=== PATIENT | male | born 1950 | race Caucasian/White ===

== ENCOUNTER 2017-06-05 06:23 | Inpatient (IN) | payer MEDICARE, MEDICAID ==
[~2017-06-05] VITALS: Ht 182.9 cm; Wt 113.4 kg
--- OUTSIDE RECORDS SUMMARY | 2017-06-05 06:33 | XMS REPORT ---
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 Medications Active Name Start Date Estimated Completion Date SIG Comments Clozaril 100 mg oral tablet take 1 tablet (100 mg) by oral route once daily Metamucil oral powder use as directed Colace 100 mg oral capsule take 1 capsule (100 mg) by oral route 2 times per day Depakote 500 mg oral tablet,delayed release (DR/EC) Zantac 150 mg oral tablet levothyroxine 137 mcg oral tablet Detrol LA 4 mg oral capsule,extended release 24hr take 1 capsule (4 mg) by oral route once daily Milk of Magnesia 400 mg/5 mL oral suspension bisacodyl 5 mg oral tablet,delayed release (DR/EC) Imodium A-D 1 mg/7.5 mL oral liquid acetaminophen 500 mg/5 mL oral liquid ibuprofen 200 mg oral tablet Maalox Maximum Strength 400-400-40 mg/5 mL oral suspension Crestor 20 mg oral tablet 10/11/2015 take 1 tablet (20 mg) by oral route once daily at bedtime Name Start Date Expiration Date SIG Comments furosemide 40 mg oral tablet 11/18/2015 11/23/2015 take 1 tablet (40 mg) by oral route once daily for 5 days Problem List Description Status Onset Chronic pain of multiple sites Active 11/18/2015 Bipolar I disorder, mild, current or most recent episode depressed, with mixed features Active 11/18/2015 Noncompliance with diet and medication regimen Active 04/27/2016 Vital Signs Date Time BP-Sys(mm[Hg] BP-Yady(mm[Hg]) HR(bpm) RR(rpm) Temp WT HT HC BMI BSA BMI Percentile O2 Sat(%) 04/26/2016 2:44:00 PM 130 mmHg 84 mmHg 99 bpm 18 rpm 98.7 F 250.5 lbs 70 in 35.94 kg/m2 2.37 m2 95 % 04/09/2016 2:20:00 PM 110 mmHg 74 mmHg 82 bpm 18 rpm 97.2 F 250 lbs 70 in 35.8709 kg/m 2.3666 m 92 % 12/07/2015 11:14:00 AM 112 mmHg 62 mmHg 69 bpm 96.6 F 219 lbs 70 in 31.42 kg/m2 2.21 m2 96 % 11/17/2015 2:25:00 PM 130 mmHg 69 mmHg 82 bpm 18 rpm 96.1 F 232 lbs 70 in 33.2882 kg/m 2.2798 m 96 % 09/21/2015 10:11:00 AM 123 mmHg 73 mmHg 95 bpm 16 rpm 96.6 F 195.25 lbs 91 % 07/18/2015 3:28:00 PM 110 mmHg 62 mmHg 96 bpm 18 rpm 97 F 196 lbs 70 in 28.1228 kg/m 2.0954 m 94 % 07/07/2015 11:20:00 AM 121 mmHg 70 mmHg 70 bpm 16 rpm 98.8 F 196 lbs 69 in 28.94 kg/m2 2.08 m2 98 % Social History Name Description Comments smoking Never Alcohol Never Uses seatbelts Current every day Exercises regularly Never Tobacco Never smoker History of Procedures Not available. Results Summary Data and Description Results 04/05/2015 2:34 PM WBC 4.3 RBC 4.69 HGB 13.20 g/dLHCT 39.80 %MCV 85.0 fLMCH 28.10 pgMCHC 33.20 g/dLRDW CV 14.0 %MPV 11.50 fLPLT 106 %NEUT 60.40 %%LYMP 28.50 %%MONO 10.40 %%EOS 0.50 %%BASO 0.20 %#NEUT 2.57 #LYMP 1.21 #MONO 0.44 # EOS 0.02 #BASO 0.01 EOS 2.0 % 05/05/2015 12:01 PM WBC 5.5 RBC 5.49 HGB 15.40 g/dLHCT 46.0 %MCV 84.0 fLMCH 28.10 pgMCHC 33.50 g/dLRDW CV 13.50 %MPV 11.40 fLPLT 105 %NEUT 56.70 %%LYMP 30.40 %%MONO 12.50 %%EOS 0.20 %%BASO 0.20 %#NEUT 3.13 #LYMP 1.68 #MONO 0.69 # EOS 0.01 #BASO 0.01 05/26/2015 7:50 AM WBC 4.4 RBC 4.93 HGB 13.80 g/dLHCT 41.10 %MCV 83.0 fLMCH 28.0 pgMCHC 33.60 g/dLRDW CV 13.90 %MPV 11.40 fLPLT 93 05/31/2015 10:20 AM WBC 5.5 RBC 5.13 HGB 14.30 g/dLHCT 43.10 %MCV 84.0 fLMCH 27.90 pgMCHC 33.20 g/dLRDW CV 13.80 %MPV 10.80 fLPLT 99 %NEUT 58.10 %%LYMP 28.10 %%MONO 12.90 %%EOS 0.70 %%BASO 0.20 %#NEUT 3.20 #LYMP 1.55 #MONO 0.71 # EOS 0.04 #BASO 0.01 EOS 1.0 % 06/06/2015 8:39 AM COLOR YELLOW APPEARANCE CLEAR SPEC GRAV 1.015 pH 8.5 PROTEIN NEGATIVE GLUCOSE NEGATIVE mg/dLKETONE TRACE BILIRUBIN NEGATIVE BLOOD NEGATIVE NITRITE NEGATIVE LEUK SCREEN NEGATIVE 06/23/2015 7:50 AM WBC 4.6 RBC 4.82 HGB 13.70 g/dLHCT 40.20 %MCV 83.0 fLMCH 28.40 pgMCHC 34.10 g/dLRDW CV 14.10 %MPV 10.50 fLPLT 107 %NEUT 51.90 %%LYMP 34.0 %%MONO 13.0 %%EOS 0.90 %%BASO 0.20 %#NEUT 2.40 #LYMP 1.57 #MONO 0.60 #EOS 0.04 #BASO 0.01 EOS 1.0 % 06/30/2015 9:41 AM WBC 4.8 RBC 4.86 HGB 13.50 g/dLHCT 41.0 %MCV 84.0 fLMCH 27.80 pgMCHC 32.90 g/dLRDW CV 14.40 %MPV 10.60 fLPLT 101 %NEUT 55.20 %%LYMP 29.20 %%MONO 14.40 %%EOS 1.0 %%BASO 0.20 %#NEUT 2.64 #LYMP 1.40 #MONO 0.69 #EOS 0.05 #BASO 0.01 EOS 2.0 %ATYP LYMPHS FEW % 07/18/2015 12:29 PM WBC 8.2 RBC 5.90 HGB 16.70 g/dLHCT 50.40 %MCV 85.0 fLMCH 28.30 pgMCHC 33.10 g/dLRDW CV 15.10 %MPV 10.90 fLPLT 110 GLUCOSE 138.0 mg/ dLSODIUM 139.0 mmol/LPOTASSIUM 4.50 mmol/LCHLORIDE 105.0 mmol/LCO2 26.0 mmol/ LBUN 22.0 mg/dLCREATININE 1.70 mg/dLSGOT/AST 13.0 IU/LSGPT/ALT 10.0 IU/LALK PHOS 110.0 IU/LTOTAL PROTEIN 7.20 g/dLALBUMIN 4.60 g/dLTOTAL BILI 0.80 mg/ dLCALCIUM 9.60 mg/dLeGFR 41 07/21/2015 7:55 AM WBC 4.9 RBC 5.07 HGB 14.10 g/dLHCT 43.0 %MCV 85.0 fLMCH 27.80 pgMCHC 32.80 g/dLRDW CV 14.30 %MPV 11.20 fLPLT 101 %NEUT 53.30 %%LYMP 24.70 %%MONO 19.60 %%EOS 1.80 %%BASO 0.60 %#NEUT 2.63 #LYMP 1.22 #MONO 0.97 # EOS 0.09 #BASO 0.03 08/23/2015 12:30 PM WBC 4.2 RBC 5.06 HGB 14.0 g/dLHCT 42.70 %MCV 84.0 fLMCH 27.70 pgMCHC 32.80 g/dLRDW CV 14.0 %MPV 11.0 fLPLT 83 %NEUT 66.10 %%LYMP 21.10 % %MONO 11.40 %%EOS 1.20 %%BASO 0.20 %#NEUT 2.78 #LYMP 0.89 #MONO 0.48 #EOS 0.05 # BASO 0.01 EOS 2.0 % 09/20/2015 3:00 PM WBC 6.2 RBC 5.45 HGB 15.30 g/dLHCT 46.10 %MCV 85.0 fLMCH 28.10 pgMCHC 33.20 g/dLRDW CV 14.40 %MPV 11.20 fLPLT 96 %NEUT 60.60 %%LYMP 22.50 %%MONO 15.40 %%EOS 1.30 %%BASO 0.20 %#NEUT 3.78 #LYMP 1.40 #MONO 0.96 # EOS 0.08 #BASO 0.01 EOS 2.0 % 09/29/2015 6:40 AM WBC 4.9 RBC 4.86 HGB 13.50 g/dLHCT 41.90 %MCV 86.0 fLMCH 27.80 pgMCHC 32.20 g/dLRDW CV 14.40 %MPV 10.20 fLPLT 92 %NEUT 53.80 %%LYMP 29.80 %%MONO 14.60 %%EOS 1.60 %%BASO 0.20 %#NEUT 2.65 #LYMP 1.47 #MONO 0.72 # EOS 0.08 #BASO 0.01 EOS 1.0 % 10/06/2015 6:25 AM WBC 6.9 RBC 5.14 HGB 14.20 g/dLHCT 44.0 %MCV 86.0 fLMCH 27.60 pgMCHC 32.30 g/dLRDW CV 14.10 %MPV 10.80 fLPLT 103 %NEUT 70.50 %%LYMP 14.50 %%MONO 14.20 %%EOS 0.70 %%BASO 0.10 %#NEUT 4.88 #LYMP 1.00 #MONO 0.98 # EOS 0.05 #BASO 0.01 10/06/2015 4:42 PM COLOR YELLOW APPEARANCE CLEAR SPEC GRAV 1.015 pH 6.5 PROTEIN TRACE GLUCOSE 100 KETONE NEGATIVE BILIRUBIN NEGATIVE BLOOD NEGATIVE NITRITE NEGATIVE LEUK SCREEN NEGATIVE CASTS/LPF FEW HYALINE /LPFCRYSTALS NEGATIVE MUCOUS THRDS 2++ BACTERIA FEW EPITH CELLS FEW SQUAMOUS /HPFTRICHOMONAS NEGATIVE YEAST NEGATIVE 11/16/2015 9:44 PM GLUCOSE 102.0 mg/dLSODIUM 143.0 mmol/LPOTASSIUM 4.70 mmol/ LCHLORIDE 107.0 mmol/LCO2 29.0 mmol/LBUN 6.0 mg/dLCREATININE 0.90 mg/dLSGOT/AST 13.0 IU/LSGPT/ALT 7.0 IU/LALK PHOS 69.0 IU/LTOTAL PROTEIN 5.10 g/dLALBUMIN 3.10 g/dLTOTAL BILI 0.30 mg/dLCALCIUM 8.10 mg/dLeGFR >60 mL/min/1.73m 11/28/2015 4:03 PM GLUCOSE 78.0 mg/dLSODIUM 140.0 mmol/LPOTASSIUM 5.0 mmol/ LCHLORIDE 106.0 mmol/LCO2 24.0 mmol/LBUN 12.0 mg/dLCREATININE 1.0 mg/dLSGOT/AST 24.0 IU/LSGPT/ALT 13.0 IU/LALK PHOS 63.0 IU/LTOTAL PROTEIN 6.70 g/dLALBUMIN 3.90 g/dLTOTAL BILI 0.40 mg/dLCALCIUM 8.60 mg/dLeGFR >60 mL/min/1.73m 12/29/2015 6:20 AM GLUCOSE 88.0 mg/dLSODIUM 143.0 mmol/LPOTASSIUM 3.90 mmol/ LCHLORIDE 107.0 mmol/LCO2 26.0 mmol/LBUN 17.0 mg/dLCREATININE 0.90 mg/dLSGOT/ AST 24.0 IU/LSGPT/ALT 21.0 IU/LALK PHOS 54.0 IU/LTOTAL PROTEIN 5.70 g/dLALBUMIN 3.70 g/dLTOTAL BILI 0.30 mg/dLCALCIUM 8.70 mg/dLeGFR >60 mL/min/1.73m 01/19/2016 6:55 AM GLUCOSE 83.0 mg/dLSODIUM 142.0 mmol/LPOTASSIUM 4.20 mmol/ LCHLORIDE 105.0 mmol/LCO2 25.0 mmol/LBUN 18.0 mg/dLCREATININE 1.0 mg/dLSGOT/AST 33.0 IU/LSGPT/ALT 33.0 IU/LALK PHOS 65.0 IU/LTOTAL PROTEIN 6.80 g/dLALBUMIN 4.40 g/dLTOTAL BILI 0.50 mg/dLCALCIUM 9.20 mg/dLeGFR >60 mL/min/1.73m 02/11/2016 6:39 PM COLOR YELLOW APPEARANCE CLEAR SPEC GRAV 1.025 pH 5.5 PROTEIN NEGATIVE GLUCOSE NEGATIVE mg/dLKETONE NEGATIVE BILIRUBIN NEGATIVE BLOOD NEGATIVE NITRITE NEGATIVE LEUK SCREEN NEGATIVE 02/23/2016 6:35 AM TSH 3.320 uIU/mLHemoglobin A1c 6.10 % 02/29/2016 3:53 PM WBC 5.6 RBC 5.22 HGB 14.80 g/dLHCT 44.60 %MCV 85.0 fLMCH 28.40 pgMCHC 33.20 g/dLRDW CV 15.10 %MPV 9.80 fLPLT 112 GLUCOSE 154.0 mg/ dLSODIUM 141.0 mmol/LPOTASSIUM 4.40 mmol/LCHLORIDE 102.0 mmol/LCO2 26.0 mmol/ LBUN 20.0 mg/dLCREATININE 1.40 mg/dLSGOT/AST 35.0 IU/LSGPT/ALT 39.0 IU/LALK PHOS 57.0 IU/LTOTAL PROTEIN 6.70 g/dLALBUMIN 4.40 g/dLTOTAL BILI 0.40 mg/ dLCALCIUM 9.30 mg/dLeGFR 51 BNP 28.0 pg/mLVALPROIC ACID 64.0 ug/mL 03/14/2016 2:10 PM GLUCOSE 159.0 mg/dLSODIUM 139.0 mmol/LPOTASSIUM 4.30 mmol/ LCHLORIDE 100.0 mmol/LCO2 26.0 mmol/LBUN 25.0 mg/dLCREATININE 1.30 mg/dLSGOT/ AST 33.0 IU/LSGPT/ALT 39.0 IU/LALK PHOS 55.0 IU/LTOTAL PROTEIN 6.60 g/dLALBUMIN 4.30 g/dLTOTAL BILI 0.60 mg/dLCALCIUM 9.20 mg/dLeGFR 55 History Of Immunizations Not available. History of Past Illness Name Date of Onset Comments bipolar Constipation Hyperlipidemia Hypothyroidism Chronic pain of multiple sites 11/18/2015 Bipolar I disorder, mild, current or most recent episode depressed, with mixed features 11/18/2015 Peripheral edema 12/14/2015 Noncompliance with diet and medication regimen 04/27/2016 Hypothyroidism, Acquired Jul 07 2015 11:20AM Constipation Jul 07 2015 11:20AM Bipolar affective disorder Jul 07 2015 11:20AM Mild Hypertonicity of bladder Jul 07 2015 11:20AM Moderate Acute Gastroenteritis, Viral Improving Jul 18 2015 3:28PM Mild Acute Diarrhea Improving Jul 18 2015 3:28PM Mild Acute Nausea Improving Jul 18 2015 3:28PM Non-intractable vomiting with nausea, vomiting of unspecified type Jul 18 2015 3:28PM Mild Acute Dizziness Sep 21 2015 10:12AM Labyrinthitis Sep 21 2015 10:12AM Moderate Acute Peripheral edema Nov 17 2015 2:26PM Moderate Acute Abnormal weight gain Nov 17 2015 2:26PM Chronic pain of multiple sites Nov 17 2015 2:26PM Bipolar I disorder, mild, current or most recent episode depressed, with mixed features Nov 17 2015 2:26PM Mild Chronic Peripheral edema Dec 07 2015 11:15AM Bipolar I disorder, mild, current or most recent episode depressed, with mixed features Dec 07 2015 11:15AM Mild Chronic Polyarthralgia Dec 07 2015 11:15AM Peripheral edema Apr 26 2016 2:45PM Noncompliance with diet and medication regimen Apr 26 2016 2:45PM Bipolar I disorder, mild, current or most recent episode depressed, with mixed features Apr 26 2016 2:45PM Peripheral edema Apr 09 2016 2:20PM Bipolar I disorder, mild, current or most recent episode depressed, with mixed features Apr 09 2016 2:20PM Chronic pain of multiple sites Apr 09 2016 2:20PM Noncompliance with diet and medication regimen Apr 09 2016 2:20PM Payers Insurance Name Company Name Plan Name Plan Number Policy Number Policy Group Number Start Date Medicare Part A Medicare RHC [id number] N/A [facility] Comm [id number] N/A Medicare Part A Medicare - Lab/Xray [id number] N/A Medicare Part A Medicare Part A [id number] N/A [facility] Comm Plan of [id number] N/A History of Encounters Visit Date Visit Type Provider 04/26/2016 Office visit RAKEL NAVARRO 04/09/2016 Office visit RAKEL NAVARRO 12/07/2015 Office visit RAKEL NAVARRO 11/17/2015 Office visit RAKEL NAVARRO 09/21/2015 Office visit RAKEL NAVARRO 07/18/2015 Office visit RAKEL NAVARRO 07/07/2015 Office visit RAKEL NAVARRO
--- OUTSIDE RECORDS SUMMARY | 2017-06-05 06:34 | XMS REPORT ---
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 Encounters No authorized problems tracked for encounter diagnoses are available for this visit. Medications No medications recorded for this patient visit Allergies, adverse reactions, alerts Allergen Category Ingredient Status Reaction Severity Onset Penicillins Drug Allergy Penicillins Confirmed or Verified Immunizations No immunizations recorded for this patient visit Relevant diagnostic tests and/or laboratory data RESULTS Chemistry [id number]:05:00 Result Normal Range Units Triglycerides H 200 35-160 mg/dl Cholesterol L 90 120-200 mg/dl HDL Cholesterol L 27 32-72 mg/dl VLDL Cholesterol 40 5-40 mg/dl LDL Cholesterol 43 30-100 mg/dl Hematology [id number]:00 Result Normal Range Units WBC 6.1 4.8-10.8 103/uL RBC 5.4 4.7-6.1 106/uL HGB 14.9 13.0-18.0 g/dl HCT 43.3 41.9-52.0 % MCV L 79.6 80-94 FL MCH 27.4 27-31 pg MCHC 34.4 33-37 g/dl RDW 14.8 11.5-15.5 % PLT 134 130-400 103/uL MPV H 10.9 7.3-10.4 FL Neutro % 53.8 40-70 % Lymph % 33.1 20-40 % Harmon % H 12.4 0-10.0 % Eos % 0.5 0-7.0 % Baso % 0.2 0-2 % Neutro # 3.3 1.5-7.5 103/uL Lymph # 2.0 0.9-4.0 103/uL Harmon # 0.8 0-0.8 103/uL Eos # 0.0 0-0.6 103/uL Baso # 0.0 0-0.1 103/uL Special Chemistry [id number]:05:00 Result Normal Range Units Hemoglobin A1C 6.0 4.5-6.2 % Reference Lab ([facility]) [id number]:05:00 Result Normal Range Units PSA 2.79 0-4.0 ng/ml Patient samples may contain heterophilic antibodies that could react in immunoassays to give falsely elevated or depressed results. This Dimension assay has been designed to minimize interference from heterophilic antibodies. Nevertheless, complete elimination of this interference from all patient specimens cannot be guaranteed. A test result that is inconsistent with the clinical picture and patient history should be interpreted with caution. Radiology Results :05:00 Result Normal Range Units MPV H 10.9 7.3-10.4 FL History of procedures Procedure Code Code Type Description Date Performed Performing Physician 51831 CPT[facility]4 [facility] [address] CPT-4 GLYCOSYLATED HEMOGLOBIN TEST 01-11-2015 [facility] [address]85 CPT-4 COMPLETE CBC W/AUTO DIFF WBC 01-11-2015 [facility] G0103 CPT-4 PSA SCREENING 01-11-2015 [facility] Functional status No functional or cognitive status observations are available for this visit. Vital signs No authorized vital signs are available for this visit. Social history No Social History or smoking status observations were recorded for this visit. ( Unknown if ever smoked.) Treatment Plan No treatment plan text is available for this visit. Hospital discharge instructions No discharge instruction text is available for this visit.
--- OUTSIDE RECORDS SUMMARY | 2017-06-05 06:34 | XMS REPORT ---
Author Author [facility] Digital Theatre [facility] Medical Staff Organization [facility] Address [address] [id number] Phone [phone] Care Team Providers Care Yam Curer Name Role Phone OLIVER CAGE MD PP [phone] Summary purpose TRANSITION OF CARE AUTO GENERATION Chief Complaint and Reason for Visit Admit Diagnosis 1 FEVER C DIFF ELEVATED LACTIC ACID Problem list No authorized problems tracked for continuity of care are available for this visit. Encounters The following conditions tracked for encounter diagnoses were recorded for this visit: Finding or Diagnosis Status Certainty Chronicity Onset *MALAISE AND FATIGUE Active *FALLS Active *FEVER Active *DIARRHEA; c-diff positive Active Medications Discharge Medications Status Medication Directions Current acetaminophen 500 mg Tab 2 TABLET oral PRN Every 8 Hours for pain/ fever Current bisacodyl 5 mg Tab 1-3 TABLET oral As Needed for constipation Current Clozaril 100 mg Tab 1 TABLET oral 1 Daily for mental illness Current Clozaril 100 mg Tab 2 TABLET oral 1 Daily for mental illness this dose is taken at 1700 QD Current Crestor 10 mg tablet 1 TABLET oral At Bed Time Current Crestor 20 mg Tab 1 TABLET oral At Bed Time for cholesterol Current Depakote 500 mg Tab 1 TABLET oral 2 Times Daily for bipolar disorder takes at 0800 and 1700 Current Detrol LA 4 mg 24 hr Cap 1 CAPSULE oral 1 Daily for bladder takes at 1700 Current docusate sodium 100 mg Cap 1 CAPSULE oral 2 Times Daily for bowels takes at 0800 and 1700 Current Jessica-Mox Antacid-Antigas 200 mg-200 mg-20 mg/5 mL oral suspension 30 milliliter(s) oral PRN Every 4 Hours Current Imodium oral 1-2 TABLET oral PRN Every 6 Hours Current levothyroxine 137 mcg tablet 1 TABLET oral 1 Daily for thyroid takes at 1700 Current Metamucil oral 1 other oral 1 Daily 1 TBSP in 8oz of liquid Current Milk of Magnesia Oral 30 milliliter(s) oral As Needed for constipation make take up to 3 times a week Current Zantac 150 mg Tab 1 TABLET oral Every Morning for GERD takes at 0700 QD Stopped Augmentin 875 mg-125 mg tablet 1 TABLET oral 2 Times Daily x20 doses started on the Jun Stopped Siltussin-DM oral 10 milliliter(s) oral PRN Every 4 Hours Allergies, adverse reactions, alerts Allergen Category Ingredient Status Reaction Severity Onset Penicillins Drug Allergy Penicillins Confirmed or Verified Immunizations No immunizations recorded for this patient visit Relevant diagnostic tests and/or laboratory data RESULTS Routine Urinalysis [id number]:30:00 Result Normal Range Units Color YELLOW Clarity Cloudy Specific [place] 1.024 pH 6.0 4.5-8.0 Glucose NEGATIVE Bilirubin NEGATIVE Ketones TRACE Protein 1+ Urobilinogen 0.2 0-0.2 E.U./dL Nitrites NEGATIVE Blood NEGATIVE Leukocytes NEGATIVE WBCs 5-10 RBCs 0-5 Squamous Epithelial No Squamous Epithelial Cells seen. Bacteria 1+ Mucous 2+ Blood Cultures [id number]:03:00 Blood Culture Plate Date and Time 07/16/2014 18:07 SourceBLOOD CULTURE REPORT NoGrowth at 1 day. Unless otherwise notified. Final report in 5 Days. Release Date/Time: 07/18/2014 12:07 CULTURE REPORT No growth in 5 days. Release Date/Time: 07/22/2014 08:45 [id number]:37:00 Blood Culture Plate Date and Time 07/16/2014 17:48 SourceBLOOD CULTURE REPORT NoGrowth at 1 day. Unless otherwise notified. Final report in 5 Days. Release Date/Time: 07/18/2014 12:07 CULTURE REPORT No growth in 5 days. Release Date/Time: 07/22/2014 08:43 Chemistry [id number]:50:00 Result Normal Range Units Sodium 144 134-145 mEq/l Potassium 3.6 3.5-5.1 mEq/l Chloride H 108 98-107 mEq/l CO2 27.5 22-28 mEq/l Glucose 93 70-105 mg/dl BUN L 5 7-18 mg/dl Creatinine 0.92 0.6-1.3 mg/dl Calcium 8.6 8.4-10.2 mg/dl Magnesium 1.9 1.7-2.8 mg/dl Osmolality 283.8 280-300 mOsm/L Anion GAP 8.5 8-16 BUN/Creatinine Ratio L 5.4 10-20 Estimated GFR 83 >=60 mL/min/1.7 :55:00 Result Normal Range Units Sodium 144 134-145 mEq/l Potassium 3.6 3.5-5.1 mEq/l Chloride H 108 98-107 mEq/l CO2 27.0 22-28 mEq/l Glucose 94 70-105 mg/dl BUN L 5 7-18 mg/dl Creatinine 0.88 0.6-1.3 mg/dl Calcium 8.5 8.4-10.2 mg/dl Osmolality 283.8 280-300 mOsm/L Anion GAP 9.0 8-16 BUN/Creatinine Ratio L 5.7 10-20 Estimated GFR 87 >=60 mL/min/1.7 :45:00 Result Normal Range Units Sodium 144 134-145 mEq/l Potassium 3.6 3.5-5.1 mEq/l Chloride H 109 98-107 mEq/l CO2 27.5 22-28 mEq/l Glucose 88 70-105 mg/dl BUN L 5 7-18 mg/dl Creatinine 0.87 0.6-1.3 mg/dl Calcium 8.4 8.4-10.2 mg/dl TP - Total Protein L 5.7 6.0-8.3 g/dl Albumin L 2.8 3.5-5 g/dl Bilirubin - Total 0.4 0.1-1.0 mg/dl AST 24 10-42 IU/L ALT 15 12-65 IU/L ALP 70 39-107 IU/L Osmolality 283.5 280-300 mOsm/L Albumin/Globulin Ratio 1.0 0-8 Anion GAP L 7.5 8-16 BUN/Creatinine Ratio L 5.7 10-20 Estimated GFR 88 >=60 mL/min/1.7 :45:00 Result Normal Range Units Sodium 143 134-145 mEq/l Potassium 3.5 3.5-5.1 mEq/l Chloride H 108 98-107 mEq/l CO2 25.0 22-28 mEq/l Glucose 104 70-105 mg/dl BUN 8 7-18 mg/dl Creatinine 0.96 0.6-1.3 mg/dl Calcium L 8.2 8.4-10.2 mg/dl TP - Total Protein L 5.8 6.0-8.3 g/dl Albumin L 3.0 3.5-5 g/dl Bilirubin - Total 0.5 0.1-1.0 mg/dl AST 20 10-42 IU/L ALT 13 12-65 IU/L ALP 79 39-107 IU/L Osmolality 283.6 280-300 mOsm/L Albumin/Globulin Ratio 1.1 0-8 Anion GAP 10.0 8-16 BUN/Creatinine Ratio L 8.3 10-20 Estimated GFR 79 >=60 mL/min/1.7 [id number]:37:00 Result Normal Range Units Sodium 141 134-145 mEq/l Potassium 3.8 3.5-5.1 mEq/l Chloride 103 98-107 mEq/l CO2 24.8 22-28 mEq/l Glucose H 166 70-105 mg/dl BUN 8 7-18 mg/dl Creatinine 1.30 0.6-1.3 mg/dl Calcium 8.8 8.4-10.2 mg/dl TP - Total Protein 6.9 6.0-8.3 g/dl Albumin 3.6 3.5-5 g/dl Bilirubin - Total 0.3 0.1-1.0 mg/dl AST 13 10-42 IU/L ALT 15 12-65 IU/L ALP 95 39-107 IU/L Osmolality 283.3 280-300 mOsm/L Albumin/Globulin Ratio 1.1 0-8 Anion GAP 13.2 8-16 BUN/Creatinine Ratio L 6.2 10-20 Estimated GFR L 55 >=60 mL/min/1.7 Lactic Acid H 2.6 0.4-2.0 mmol/L Hematology [id number]:50:00 Result Normal Range Units WBC L 4.7 4.8-10.8 103/uL RBC L 4.6 4.7-6.1 106/uL HGB L 12.5 13.0-18.0 g/dl HCT L 37.1 41.9-52.0 % MCV 80.1 80-94 FL MCH 27.0 27-31 pg MCHC 33.7 33-37 g/dl RDW 14.9 11.5-15.5 % PLT 150 130-400 103/uL MPV 10.3 7.3-10.4 FL Segs 55.0 40-70 % Lymphs 30.0 20-40 % [place] 9.0 0-10 % Eos 3.0 0-7 % Atypical Lymphs 3.0 0-5 % :55:00 Result Normal Range Units WBC L 4.7 4.8-10.8 103/uL RBC 4.7 4.7-6.1 106/uL HGB L 12.7 13.0-18.0 g/dl HCT L 37.8 41.9-52.0 % MCV 80.4 80-94 FL MCH 27.0 27-31 pg MCHC 33.6 33-37 g/dl RDW 15.0 11.5-15.5 % PLT 141 130-400 103/uL MPV 10.3 7.3-10.4 FL Neutro % 57.7 40-70 % Lymph % 25.6 20-40 % [place] % H 13.1 0-10.0 % Eos % 3.2 0-7.0 % Baso % 0.4 0-2 % Neutro # 2.7 1.5-7.5 103/uL Lymph # 1.2 0.9-4.0 103/uL [place] # 0.6 0-0.8 103/uL Eos # 0.2 0-0.6 103/uL Baso # 0.0 0-0.1 103/uL [id number]:45:00 Result Normal Range Units WBC 5.2 4.8-10.8 103/uL RBC L 4.4 4.7-6.1 106/uL HGB L 12.2 13.0-18.0 g/dl HCT L 37.5 41.9-52.0 % MCV 85.8 80-94 FL MCH 27.9 27-31 pg MCHC L 32.5 33-37 g/dl RDW 15.2 11.5-15.5 % PLT L 117 130-400 103/uL MPV H 11.0 7.3-10.4 FL Neutro % 57.0 40-70 % Lymph % 25.0 20-40 % [place] % H 14.3 0-10.0 % Eos % 3.5 0-7.0 % Baso % 0.2 0-2 % Neutro # 3.0 1.5-7.5 103/uL Lymph # 1.3 0.9-4.0 103/uL [place] # 0.7 0-0.8 103/uL Eos # 0.2 0-0.6 103/uL Baso # 0.0 0-0.1 103/uL [id number]:45:00 Result Normal Range Units WBC 8.0 4.8-10.8 103/uL RBC 4.7 4.7-6.1 106/uL HGB 13.0 13.0-18.0 g/dl HCT L 38.3 41.9-52.0 % MCV 80.8 80-94 FL MCH 27.4 27-31 pg MCHC 33.9 33-37 g/dl RDW H 15.7 11.5-15.5 % PLT L 128 130-400 103/uL MPV H 11.2 7.3-10.4 FL Neutro % H 70.3 40-70 % Lymph % L 14.9 20-40 % [place] % H 14.3 0-10.0 % Eos % 0.4 0-7.0 % Baso % 0.1 0-2 % Neutro # 5.6 1.5-7.5 103/uL Lymph # 1.2 0.9-4.0 103/uL [place] # H 1.1 0-0.8 103/uL Eos # 0.0 0-0.6 103/uL Baso # 0.0 0-0.1 103/uL [id number]:37:00 Result Normal Range Units WBC 9.5 4.8-10.8 103/uL RBC 5.4 4.7-6.1 106/uL HGB 14.6 13.0-18.0 g/dl HCT 43.9 41.9-52.0 % MCV 81.3 80-94 FL MCH 27.0 27-31 pg MCHC 33.3 33-37 g/dl RDW 15.4 11.5-15.5 % PLT 144 130-400 103/uL MPV H 10.6 7.3-10.4 FL Segs H 75.0 40-70 % Bands H 14.0 0-5 % Lymphs L 9.0 20-40 % [place] 2.0 0-10 % Microbiology [id number]:00:00 Result Normal Range Units MRSA Screen See Comments Plate Date and Time 07/16/2014 23:39 SourceNOSE CULTURE REPORT Negative - No MRSA Colonization Day 1 Release Date/Time: 07/17/2014 07:34 CULTURE REPORT Negative - No MRSA Colonization Day 2 Release Date/Time: 07/18/2014 07:31 Body Fluid [id number]:30:00 Result Normal Range Units pH 6.0 4.5-8.0 Radiology Results [id number]:50:00 Result Normal Range Units MPV 10.3 7.3-10.4 FL [id number]:54:00 Abdomen 1 View Port PACs Image DATE OF EXAM: 2013 RAD [id number]-ABDOMEN 1 VIEW PORT : RADIOLOGY REPORT DATE OF SERVICE:07/16/2014 HISTORY:Patient fell and has dizziness, diarrhea, and arm edema. ABDOMEN PORTABLE 1 VIEW STUDY 1754 HOURS Bowel gas pattern is normal. No abnormal calcifications are seen. Bony structures are intact. IMPRESSION: Negative study of the abdomen. DO MARYANN Mcmahon/susan 07/18/2014 09:47:00 / 07/18/2014 11:52:42 cc:Dr. Oliver Cage This document has been electronically Signed by: On: DATE OF EXAM: 2013 RAD 0029-ABDOMEN 1 VIEW PORT : RADIOLOGY REPORT DATE OF SERVICE:07/16/2014 HISTORY:Patient fell and has dizziness, diarrhea, and arm edema. ABDOMEN PORTABLE 1 VIEW STUDY 1754 HOURS Bowel gas pattern is normal. No abnormal calcifications are seen. Bony structures are intact. IMPRESSION: Negative study of the abdomen. Jamari Valdez DO MW/susan 07/18/2014 09:47:00 / 07/18/2014 11:52:42 cc:Dr. Oliver Cage This document has been electronically Signed by: JAMARI VALDEZ DO On: Jul 19 20148:54A FEVER C DIFF ELEVATED LACTIC A Result Amended on 2014-07-19 at 08:54:13. Previous status was NH. FEVER C DIFF ELEVATED LACTIC A Chest XRay - Port - 1 View PACs Image DATE OF EXAM: 2013 RAD 0292-CHEST 1 VIEW PORT : RADIOLOGY REPORT DATE OF SERVICE:07/16/2014 HISTORY:The patient fell and has dizziness, diarrhea, and arm edema. PORTABLE 1 VIEW CHEST 1754 HOURS Heart and mediastinum are normal. The lungs are clear. No effusion is seen. IMPRESSION: No acute process in the chest. There is marked deformity and degenerative change at the right shoulder. Jamari Valdez DO MW/gc 07/18/2014 09:47:00 / 07/18/2014 11:51:15 cc:Dr. Oliver Cage This document has been electronically Signed by: On: DATE OF EXAM: 2013 RAD 0292-CHEST 1 VIEW PORT : RADIOLOGY REPORT DATE OF SERVICE:07/16/2014 HISTORY:The patient fell and has dizziness, diarrhea, and arm edema. PORTABLE 1 VIEW CHEST 1754 HOURS Heart and mediastinum are normal. The lungs are clear. No effusion is seen. IMPRESSION: No acute process in the chest. There is marked deformity and degenerative change at the right shoulder. Jamari Valdez DO MW/gc 07/18/2014 09:47:00 / 07/18/2014 11:51:15 cc:Dr. Oliver Cage This document has been electronically Signed by: JAMARI VALDEZ DO On: Jul 19 20148:54A FEVER C DIFF ELEVATED LACTIC A Result Amended on 2014-07-19 at 08:54:12. Previous status was NH. FEVER C DIFF ELEVATED LACTIC A [id number]:55:00 Result Normal Range Units MPV 10.3 7.3-10.4 FL [id number]:45:00 Result Normal Range Units MPV H 11.0 7.3-10.4 FL [id number]:45:00 Result Normal Range Units MPV H 11.2 7.3-10.4 FL [id number]:37:00 Result Normal Range Units MPV H 10.6 7.3-10.4 FL History of procedures No procedures recorded for this patient visit. Functional status Functional Status Finding Observation Time Hearing Prob Loc bilateral Comment: MI'KMAQ :45 Vision Problems no :45 Ambulation Asst Dev none :45 Range of Motion full :35 Muscle Strength RUE 5 ROM full resist :35 Muscle Strength RLE 5 ROM full resist :35 Muscle Strength LUE 5 ROM full resist :35 Muscle Strength LLE 5 ROM full resist :35 Transfers assist x 1 :35 Ambulation in room :35 Balance unsteady :35 Bathing Assistance moderate :45 Eating Assistance none :03 Dressing Assistance none :45 Toileting Assistance moderate :45 Transfer Assistance moderate :45 Decline Slf Care/Mob no :45 Phys Cond Stable yes :45 Cognitive Status Finding Observation Time Oriented To Date [address] Yes :[address] 5 Yes :45 Name 3 Objects 3 Yes :45 Name Object in Rm 2 Yes :45 Recall 3 Objects 3 Yes :45 Repeats a Phrase 1 Yes :45 Follows Verbal Direc 3 Yes :45 Follows Written Dire 1 Yes :45 Write a Sentance 1 Yes :45 Draw an Object 1 Yes :45 Mini Mental Total 25 points :45 Less than 20 Phys not applicable :45 Learning Ability comprehend deficit :08 Neurological no :08 Psychological yes :08 Physical yes :08 Hearing yes :08 Nuclear Scientist Needed no :08 Sign Language no :08 Emotional no :08 Vision yes :08 Laguage no :08 Financial no :08 Vital signs Type Value Date Respiration Rate 18breaths per minute :26 Pulse 84beats per minute : Oxygen Saturation 93% :26 BP Systolic 137mmHg :26 BP Diastolic 77mmHg :26 Temperature 98.3F :26 Height 69.5inches :50 Weight 204.4LB [id number]:50 Social history Type Value Smoking Status NEVER SMOKER Treatment Plan No treatment plan text is available for this visit. Hospital discharge instructions Dismissal Condition fair Disposition on DC admitted Valuables yes Valuable Type other (specify) Comment: clothing
--- OUTSIDE RECORDS SUMMARY | 2017-06-05 06:35 | XMS REPORT ---
Author RAKEL Kumar [facility] Address [address] [facility] [address] [place], [place] [id number] Care Team Providers Care Mechanical Applications Engineer Name Role Phone RAKEL YEBOAH PCP Unavailable Allergies and Adverse Reactions Name Reaction Notes PENICILLINS Plan of Treatment Planned Activity Comments Planned Date Planned Time Plan/Goal Injection,Subcutaneous/Intramuscul, RHC Medicare 09/14/2016 12:00 AM Medications Active Name Start Date Estimated Completion [...] by oral route once daily at bedtime Zithromax Z-Nicola 250 mg oral tablet 09/11/2016 09/16/2016 take 2 tablets (500 mg ) by oral route once daily for 1 day then 1 tablet (250 mg) by oral route once daily for 4 days Name Start Date Expiration Date SIG Comments furosemide 40 mg oral tablet 11/18/2015 11/23/2015 take 1 tablet (40 mg) by oral route once daily for 5 days Problem List Description Status Onset Chronic pain of multiple sites Active 11/18/2015 Bipolar I disorder, mild, current or most recent episode depressed, with mixed features Active 11/18/2015 Noncompliance with diet and medication regimen Active 04/27/2016 Advanced dementia Active 07/31/2016 Generalized edema Active 07/31/2016 Drug-induced Parkinsonism Active 07/31/2016 Depression, major, recurrent, severe with psychosis Active 07/31/2016 Vital Signs Date Time BP-Sys(mm[Hg] BP-Yady(mm[Hg]) HR(bpm) RR(rpm) Temp WT HT HC BMI BSA BMI Percentile O2 Sat(%) 09/14/2016 11:01:00 AM 145 mmHg 64 mmHg 70 bpm 16 rpm 98.2 F 258 lbs 90 % 09/11/2016 2:53:00 PM 138 mmHg 65 mmHg 73 bpm 18 rpm 98.9 F 250 lbs 70 in 35.8709 kg/m 2.3666 m 91 % 07/30/2016 2:27:00 PM 130 mmHg 80 mmHg 83 bpm 18 rpm 97.4 F 70 in 97 % 05/10/2016 11:05:00 AM 122 mmHg 65 mmHg 108 bpm 16 rpm 98.4 F 249 lbs 70 in 35.7274 kg/m 2.3618 m 96 % 04/26/2016 2:44:00 PM 130 mmHg 84 mmHg [...] %MCV 85.0 fLMCH 28.10 pgMCHC 33.20 g/dLRDW SD 43 RDW CV 14.0 %MPV 11.50 fLPLT 106 NRBC# 0.00 NRBC% 0.0 %NEUT 60.40 %%LYMP 28.50 %%MONO 10.40 %%EOS 0.50 %%BASO 0.20 %#NEUT 2.57 #LYMP 1.21 #MONO 0.44 #EOS 0.02 #BASO 0.01 SEGS 64 BANDS 11 LYMPHS 16 MONOS 7 EOS 2.0 % 05/05/2015 12:01 PM WBC 5.5 RBC 5.49 HGB 15.40 g/dLHCT 46.0 %MCV 84.0 fLMCH 28.10 pgMCHC 33.50 g/dLRDW SD 41 RDW CV 13.50 %MPV 11.40 fLPLT 105 NRBC# 0.00 NRBC% 0.0 %NEUT 56.70 %%LYMP 30.40 %%MONO 12.50 %%EOS 0.20 %%BASO 0.20 %#NEUT 3.13 #LYMP 1.68 #MONO 0.69 #EOS 0.01 #BASO 0.01 SEGS 51 BANDS 10 LYMPHS 34 MONOS 5 05/26/2015 7:50 AM WBC 4.4 RBC 4.93 HGB 13.80 g/dLHCT 41.10 %MCV 83.0 fLMCH 28.0 pgMCHC 33.60 g/dLRDW SD 42 RDW CV 13.90 %MPV 11.40 fLPLT 93 NRBC# 0.00 NRBC % 0.0 05/31/2015 10:20 AM WBC 5.5 RBC 5.13 HGB 14.30 g/dLHCT 43.10 %MCV 84.0 fLMCH 27.90 pgMCHC 33.20 g/dLRDW SD 42 RDW CV 13.80 %MPV 10.80 fLPLT 99 NRBC# 0.00 NRBC% 0.0 %NEUT 58.10 %%LYMP 28.10 %%MONO 12.90 %%EOS 0.70 %%BASO 0.20 %#NEUT 3.20 #LYMP 1.55 #MONO 0.71 #EOS 0.04 #BASO 0.01 SEGS 53 BANDS 6 LYMPHS 35 MONOS 5 EOS 1.0 % 06/06/2015 8:39 AM COLOR YELLOW APPEARANCE CLEAR SPEC GRAV 1.015 pH 8.5 PROTEIN NEGATIVE GLUCOSE NEGATIVE mg/dLKETONE TRACE BILIRUBIN NEGATIVE BLOOD NEGATIVE NITRITE NEGATIVE LEUK SCREEN NEGATIVE MICRO INDICATED? NOT INDICATED 06/23/2015 7:50 AM WBC 4.6 RBC 4.82 HGB 13.70 g/dLHCT 40.20 %MCV 83.0 fLMCH 28.40 pgMCHC 34.10 g/dLRDW SD 43 RDW CV 14.10 %MPV 10.50 fLPLT 107 NRBC# 0.00 NRBC% 0.0 %NEUT 51.90 %%LYMP 34.0 %%MONO 13.0 %%EOS 0.90 %%BASO 0.20 %#NEUT 2.40 #LYMP 1.57 #MONO 0.60 #EOS 0.04 #BASO 0.01 SEGS 44 BANDS 10 LYMPHS 35 MONOS 10 EOS 1.0 % 06/30/2015 9:41 AM WBC 4.8 RBC 4.86 HGB 13.50 g/dLHCT 41.0 %MCV 84.0 fLMCH 27.80 pgMCHC 32.90 g/dLRDW SD 44 RDW CV 14.40 %MPV 10.60 fLPLT 101 NRBC# 0.00 NRBC% 0.0 %NEUT 55.20 %%LYMP 29.20 %%MONO 14.40 %%EOS 1.0 %%BASO 0.20 %#NEUT 2.64 #LYMP 1.40 #MONO 0.69 #EOS 0.05 #BASO 0.01 SEGS 48 BANDS 9 LYMPHS 31 MONOS 10 EOS 2.0 %ATYP LYMPHS FEW % 07/18/2015 12:29 PM WBC 8.2 RBC 5.90 HGB 16.70 g/dLHCT 50.40 %MCV 85.0 fLMCH 28.30 pgMCHC 33.10 g/dLRDW SD 47 RDW CV 15.10 %MPV 10.90 fLPLT 110 NRBC# 0.00 NRBC% 0.0 GLUCOSE 138.0 mg/dLSODIUM 139.0 mmol/LPOTASSIUM 4.50 mmol/LCHLORIDE 105.0 mmol/LCO2 26.0 mmol/LBUN 22.0 mg/dLCREATININE 1.70 mg/dLSGOT/AST 13.0 IU/ LSGPT/ALT 10.0 IU/LALK PHOS 110.0 IU/LTOTAL PROTEIN 7.20 g/dLALBUMIN 4.60 g/ dLTOTAL BILI 0.80 mg/dLCALCIUM 9.60 mg/dLAGE 65 GFR NonAA 41 GFR AA 50 eGFR 41 eGFR AA* 50 07/21/2015 7:55 AM WBC 4.9 RBC 5.07 HGB 14.10 g/dLHCT 43.0 %MCV 85.0 fLMCH 27.80 pgMCHC 32.80 g/dLRDW SD 44 RDW CV 14.30 %MPV 11.20 fLPLT 101 NRBC# 0.00 NRBC% 0.0 %NEUT 53.30 %%LYMP 24.70 %%MONO 19.60 %%EOS 1.80 %%BASO 0.60 %#NEUT 2.63 #LYMP 1.22 #MONO 0.97 #EOS 0.09 #BASO 0.03 MANUAL DIFF NOT IND 08/23/2015 12:30 PM WBC 4.2 RBC 5.06 HGB 14.0 g/dLHCT 42.70 %MCV 84.0 fLMCH 27.70 pgMCHC 32.80 g/dLRDW SD 43 RDW CV 14.0 %MPV 11.0 fLPLT 83 NRBC# 0.00 NRBC % 0.0 %NEUT 66.10 %%LYMP 21.10 %%MONO 11.40 %%EOS 1.20 %%BASO 0.20 %#NEUT 2.78 # LYMP 0.89 #MONO 0.48 #EOS 0.05 #BASO 0.01 SEGS 56 BANDS 14 LYMPHS 21 MONOS 7 EOS 2.0 % 09/20/2015 3:00 PM WBC 6.2 RBC 5.45 HGB 15.30 g/dLHCT 46.10 %MCV 85.0 fLMCH 28.10 pgMCHC 33.20 g/dLRDW SD 44 RDW CV 14.40 %MPV 11.20 fLPLT 96 NRBC# 0.00 NRBC% 0.0 %NEUT 60.60 %%LYMP 22.50 %%MONO 15.40 %%EOS 1.30 %%BASO 0.20 %#NEUT 3.78 #LYMP 1.40 #MONO 0.96 #EOS 0.08 #BASO 0.01 SEGS 40 BANDS 22 LYMPHS 23 MONOS 11 EOS 2.0 %METAS 2 09/29/2015 6:40 AM WBC 4.9 RBC 4.86 HGB 13.50 g/dLHCT 41.90 %MCV 86.0 fLMCH 27.80 pgMCHC 32.20 g/dLRDW SD 45 RDW CV 14.40 %MPV 10.20 fLPLT 92 NRBC# 0.00 NRBC% 0.0 %NEUT 53.80 %%LYMP 29.80 %%MONO 14.60 %%EOS 1.60 %%BASO 0.20 %#NEUT 2.65 #LYMP 1.47 #MONO 0.72 #EOS 0.08 #BASO 0.01 SEGS 53 BANDS 5 LYMPHS 29 MONOS 12 EOS 1.0 % 10/06/2015 6:25 AM WBC 6.9 RBC 5.14 HGB 14.20 g/dLHCT 44.0 %MCV 86.0 fLMCH 27.60 pgMCHC 32.30 g/dLRDW SD 44 RDW CV 14.10 %MPV 10.80 fLPLT 103 NRBC# 0.00 NRBC% 0.0 %NEUT 70.50 %%LYMP 14.50 %%MONO 14.20 %%EOS 0.70 %%BASO 0.10 %#NEUT 4.88 #LYMP 1.00 #MONO 0.98 #EOS 0.05 #BASO 0.01 SEGS 54 BANDS 23 LYMPHS 16 MONOS 7 10/06/2015 4:42 PM COLOR YELLOW APPEARANCE CLEAR SPEC GRAV 1.015 pH 6.5 PROTEIN TRACE GLUCOSE 100 KETONE NEGATIVE BILIRUBIN NEGATIVE BLOOD NEGATIVE NITRITE NEGATIVE LEUK SCREEN NEGATIVE MICRO INDICATED? SEE BELOW WBC/HPF 0-5 RBC /HPF NEGATIVE CASTS/LPF FEW HYALINE /LPFCRYSTALS NEGATIVE MUCOUS THRDS 2++ BACTERIA FEW EPITH CELLS FEW SQUAMOUS /HPFTRICHOMONAS NEGATIVE YEAST NEGATIVE CULT SET UP? NO 11/16/2015 9:44 PM GLUCOSE 102.0 mg/dLSODIUM 143.0 mmol/LPOTASSIUM 4.70 mmol/ LCHLORIDE 107.0 mmol/LCO2 29.0 mmol/LBUN 6.0 mg/dLCREATININE 0.90 mg/dLSGOT/AST 13.0 IU/LSGPT/ALT 7.0 IU/LALK PHOS 69.0 IU/LTOTAL PROTEIN 5.10 g/dLALBUMIN 3.10 g/dLTOTAL BILI 0.30 mg/dLCALCIUM 8.10 mg/dLAGE 65 GFR NonAA 84 GFR AA 102 eGFR > 60 mL/min/1.73meGFR AA* >60 11/28/2015 4:03 PM GLUCOSE 78.0 mg/dLSODIUM 140.0 mmol/LPOTASSIUM 5.0 mmol/ LCHLORIDE 106.0 mmol/LCO2 24.0 mmol/LBUN 12.0 mg/dLCREATININE 1.0 mg/dLSGOT/AST 24.0 IU/LSGPT/ALT 13.0 IU/LALK PHOS 63.0 IU/LTOTAL PROTEIN 6.70 g/dLALBUMIN 3.90 g/dLTOTAL BILI 0.40 mg/dLCALCIUM 8.60 mg/dLAGE 65 GFR NonAA 75 GFR AA 91 eGFR >60 mL/min/1.73meGFR AA* >60 12/29/2015 6:20 AM GLUCOSE 88.0 mg/dLSODIUM 143.0 mmol/LPOTASSIUM 3.90 mmol/ LCHLORIDE 107.0 mmol/LCO2 26.0 mmol/LBUN 17.0 mg/dLCREATININE 0.90 mg/dLSGOT/ AST 24.0 IU/LSGPT/ALT 21.0 IU/LALK PHOS 54.0 IU/LTOTAL PROTEIN 5.70 g/dLALBUMIN 3.70 g/dLTOTAL BILI 0.30 mg/dLCALCIUM 8.70 mg/dLAGE 65 GFR NonAA 84 GFR AA 102 eGFR >60 mL/min/1.73meGFR AA* >60 01/19/2016 6:55 AM GLUCOSE 83.0 mg/dLSODIUM 142.0 mmol/LPOTASSIUM 4.20 mmol/ LCHLORIDE 105.0 mmol/LCO2 25.0 mmol/LBUN 18.0 mg/dLCREATININE 1.0 mg/dLSGOT/AST 33.0 IU/LSGPT/ALT 33.0 IU/LALK PHOS 65.0 IU/LTOTAL PROTEIN 6.80 g/dLALBUMIN 4.40 g/dLTOTAL BILI 0.50 mg/dLCALCIUM 9.20 mg/dLAGE 65 GFR NonAA 75 GFR AA 91 eGFR >60 mL/min/1.73meGFR AA* >60 02/11/2016 6:39 PM COLOR YELLOW APPEARANCE CLEAR SPEC GRAV 1.025 pH 5.5 PROTEIN NEGATIVE GLUCOSE NEGATIVE mg/dLKETONE NEGATIVE BILIRUBIN NEGATIVE BLOOD NEGATIVE NITRITE NEGATIVE LEUK SCREEN NEGATIVE MICRO INDICATED? NOT INDICATED 02/23/2016 6:35 AM TSH 3.320 uIU/mLHemoglobin A1c 6.10 %Estim. Avg Glu (eAG) 128 02/29/2016 3:53 PM WBC 5.6 RBC 5.22 HGB 14.80 g/dLHCT 44.60 %MCV 85.0 fLMCH 28.40 pgMCHC 33.20 g/dLRDW SD 47 RDW CV 15.10 %MPV 9.80 fLPLT 112 NRBC# 0.00 NRBC% 0.0 GLUCOSE 154.0 mg/dLSODIUM 141.0 mmol/LPOTASSIUM 4.40 mmol/LCHLORIDE 102.0 mmol/LCO2 26.0 mmol/LBUN 20.0 mg/dLCREATININE 1.40 mg/dLSGOT/AST 35.0 IU/ LSGPT/ALT 39.0 IU/LALK PHOS 57.0 IU/LTOTAL PROTEIN 6.70 g/dLALBUMIN 4.40 g/ dLTOTAL BILI 0.40 mg/dLCALCIUM 9.30 mg/dLAGE 65 GFR NonAA 51 GFR AA 62 eGFR 51 eGFR AA* >60 BNP 28.0 pg/mLVALPROIC ACID 64.0 ug/mL 03/14/2016 2:10 PM GLUCOSE 159.0 mg/dLSODIUM 139.0 mmol/LPOTASSIUM 4.30 mmol/ LCHLORIDE 100.0 mmol/LCO2 26.0 mmol/LBUN 25.0 mg/dLCREATININE 1.30 mg/dLSGOT/ AST 33.0 IU/LSGPT/ALT 39.0 IU/LALK PHOS 55.0 IU/LTOTAL PROTEIN 6.60 g/dLALBUMIN 4.30 g/dLTOTAL BILI 0.60 mg/dLCALCIUM 9.20 mg/dLAGE 65 GFR NonAA 55 GFR AA 67 eGFR 55 eGFR AA* >60 05/17/2016 6:45 AM WBC 4.5 RBC 5.37 HGB 15.30 g/dLHCT 47.70 %MCV 89.0 fLMCH 28.50 pgMCHC 32.10 g/dLRDW SD 45 RDW CV 14.0 %MPV 9.40 fLPLT 114 NRBC# 0.00 NRBC % 0.0 GLUCOSE 102.0 mg/dLSODIUM 140.0 mmol/LPOTASSIUM 4.10 mmol/LCHLORIDE 104.0 mmol/LCO2 21.0 mmol/LBUN 16.0 mg/dLCREATININE 1.10 mg/dLSGOT/AST 33.0 IU/LSGPT/ ALT 24.0 IU/LALK PHOS 66.0 IU/LTOTAL PROTEIN 6.50 g/dLALBUMIN 4.0 g/dLTOTAL BILI 0.60 mg/dLCALCIUM 9.20 mg/dLAGE 65 GFR NonAA 67 GFR AA 81 eGFR >60 mL/min/ 1.73meGFR AA* >60 TRIGLYCERIDES 266.0 mg/dLCHOLESTEROL 206.0 mg/dLHDL 27.0 mg/ dLTOT CHOL/HDL 7.6 LDL 138.0 mg/dL 05/24/2016 6:40 AM HGB A1C 5.50 %Est Avg Glucose 111.2 mg/dL 05/31/2016 6:30 AM HGB A1C 5.60 %Est Avg Glucose 114.0 mg/dL 08/23/2016 7:00 AM HGB A1C 6.10 %Est Avg Glucose 128.4 mg/dLTSH 3.960 uIU/mL History Of Immunizations Not available. History of Past Illness Name Date of Onset Comments bipolar Constipation Hyperlipidemia Hypothyroidism Chronic pain of multiple sites 11/18/2015 Bipolar I disorder, mild, current or most recent episode depressed, with mixed features 11/18/2015 Peripheral edema 12/14/2015 Noncompliance with diet and medication regimen 04/27/2016 Advanced dementia 07/31/2016 Generalized edema 07/31/2016 Drug-induced Parkinsonism 07/31/2016 Depression, major, recurrent, severe with psychosis 07/31/2016 Hypothyroidism, Acquired Jul 07 2015 11:20AM Constipation [...] and medication regimen Apr 09 2016 2:20PM Bipolar I disorder, mild, current or most recent episode depressed, with mixed features May 10 2016 11:06AM Noncompliance with diet and medication regimen May 10 2016 11:06AM Mild Chronic Peripheral edema May 10 2016 11:06AM Hypothyroidism, Acquired Jul 30 2016 2:28PM Other chronic pain Jul 30 2016 2:28PM Slow transit constipation Jul 30 2016 2:28PM Bipolar I disorder, mild, current or most recent episode depressed, with mixed features Jul 30 2016 2:28PM Pain, unspecified Jul 30 2016 2:28PM Other chronic pain Jul 30 2016 2:28PM Patient's noncompliance with dietary regimen Jul 30 2016 2:28PM Patient's other noncompliance with medication regimen Jul 30 2016 2:28PM Depression, major, recurrent, severe with psychosis Jul 30 2016 2:28PM Other drug induced secondary parkinsonism Jul 30 2016 2:28PM Generalized edema Jul 30 2016 2:28PM Degenerative disease of nervous system, unspecified Jul 30 2016 2:28PM Anemia caused by folic acid deficiency Jul 30 2016 2:28PM Vitamin D insufficiency Jul 30 2016 2:28PM Insomnia due to other mental disorder Jul 30 2016 2:28PM Unspecified psychosis not due to a substance or known physiological condition Jul 30 2016 2:28PM Advanced dementia Jul 30 2016 2:28PM Moderate Acute Cough Sep 14 2016 11:02AM Acute bronchitis, unspecified organism Sep 14 2016 11:02AM Moderate Acute Chest congestion Sep 14 2016 11:02AM Moderate Acute Productive cough Sep 14 2016 11:02AM Payers Insurance Name Company Name Plan Name Plan Number Policy Number Policy Group Number Start Date Medicare Part A Medicare RHC [id number] N/A [facility] - Community Plan [facility] Comm [id number] N/A Medicare Part A Medicare - Lab/Xray [id number] N/A Medicare Part A Medicare Part A [id number] N/A [facility] Comm Plan of [id number] N/A History of Encounters Visit Date Visit Type Provider 09/14/2016 Office visit RAKEL NAVARRO 09/11/2016 Office visit RAKEL NAVARRO 07/30/2016 Office visit RAKEL NAVARRO 05/10/2016 Office visit RAKEL NAVARRO 04/26/2016 Office visit RAKEL NAVARRO 04/09/2016 Office visit RAKEL NAVARRO 12/07/2015 Office visit RAKEL NAVARRO 11/17/2015 Office visit RAKEL NAVARRO 09/21/2015 Office visit RAKEL NAVARRO 07/18/2015 Office visit RAKEL NAVARRO 07/07/2015 Office visit RAKEL NAVARRO
--- OUTSIDE RECORDS SUMMARY | 2017-06-05 06:36 | XMS REPORT ---
Author Author RAKEL YEBOAH [facility] Address [address] [place], [place] [id number] Care Team Providers Care Corporate Pilot Name Role Phone RAKEL YEBOAH PCP Unavailable [...] oral route once daily for 5 days Zithromax Z-Nicola 250 mg oral tablet 09/11/2016 09/16/2016 take 2 tablets (500 mg ) by oral route once daily for 1 day then 1 tablet (250 mg) by oral route once daily for 4 days prednisone 20 mg oral tablet 09/11/2016 09/19/2016 4x2 days 3x2 days 2x2 days 1x2 days Problem List Description Status Onset Chronic pain of multiple sites Active 11/18/2015 Bipolar I disorder, mild, current or most recent episode depressed, with mixed features Active 11/18/2015 Noncompliance with diet and medication regimen Active 04/27/2016 Advanced dementia Active 07/31/2016 Generalized edema Active 07/31/2016 Drug-induced Parkinsonism Active 07/31/2016 Depression, major, recurrent, severe with psychosis Active 07/31/2016 Morbid obesity due to excess calories Active 10/15/2016 Vital Signs Date Time BP-Sys(mm[Hg] BP-Yady(mm[Hg]) HR(bpm) RR(rpm) Temp WT HT HC BMI BSA BMI Percentile O2 Sat(%) 11/20/2016 1:22:00 PM 109 mmHg 52 mmHg 84 bpm 16 rpm 98.2 F 251 lbs 70 in 36.01 kg/m2 2.37 m2 90 % 10/15/2016 10:12:00 AM 151 mmHg 82 mmHg 80 bpm 18 rpm 96.6 F 252 lbs 70 in 36.1579 kg/m 2.376 m 96 % 09/14/2016 11:01:00 AM 145 mmHg 64 mmHg [...] Never Tobacco Never smoker History of Procedures Date Ordered Description Order Status 09/14/2016 12:00 AM THERAPEUTIC PROPHYLACTIC/DX INJECTION SUBQ/IM Reviewed 09/14/2016 12:00 AM Decadron 8mg Injection, [facility] Medicare Reviewed 09/14/2016 12:00 AM Depo-Medrol 80mg Injection, [facility] Medicare Reviewed 11/20/2016 12:00 AM THERAPEUTIC PROPHYLACTIC/DX INJECTION SUBQ/IM Reviewed 11/20/2016 12:00 AM Decadron 8mg Injection, [facility] Medicare Reviewed 11/20/2016 12:00 AM Depo-Medrol 80mg Injection, [facility] Medicare Reviewed Results Summary Data and Description Results 04/05/2015 [...] %Est Avg Glucose 128.4 mg/dLTSH 3.960 uIU/mL 11/08/2016 6:55 AM VALPROIC ACID 80.0 ug/mL 11/15/2016 6:30 AM HGB A1C 5.60 %Est Avg Glucose 114.0 mg/dL 11/16/2016 8:18 AM COLOR YELLOW APPEARANCE CLEAR SPEC GRAV 1.010 pH 6.5 PROTEIN NEGATIVE GLUCOSE NEGATIVE mg/dLKETONE NEGATIVE BILIRUBIN NEGATIVE BLOOD NEGATIVE NITRITE NEGATIVE LEUK SCREEN NEGATIVE MICRO INDICATED? NOT INDICATED History Of Immunizations Not available. History of [...] Depression, major, recurrent, severe with psychosis 07/31/2016 Morbid obesity due to excess calories 10/15/2016 Hypothyroidism, Acquired Jul 07 2015 11:20AM Constipation [...] Acute Productive cough Sep 14 2016 11:02AM Moderate Acute Cough Sep 11 2016 2:54PM Acute bronchitis, unspecified organism Sep 11 2016 2:54PM Moderate Acute Sputum production Sep 11 2016 2:54PM Morbid obesity due to excess calories Oct 15 2016 10:13AM Pain, unspecified Oct 15 2016 10:13AM Other chronic pain Oct 15 2016 10:13AM Depression, major, recurrent, severe with psychosis Oct 15 2016 10:13AM Generalized edema Oct 15 2016 10:13AM Patient's noncompliance with dietary regimen Oct 15 2016 10:13AM Patient's other noncompliance with medication regimen Oct 15 2016 10:13AM Cough Nov 20 2016 1:24PM Chest congestion Nov 20 2016 1:24PM Upper respiratory tract infection, unspecified type Nov 20 2016 1:24PM Payers Insurance Name Company Name Plan Name Plan Number Policy Number Policy Group Number Start Date Medicare RHC Medicare RHC [id number] [facility] Comm [id number] N/A Medicare Part A Medicare - Lab/Xray [id number] N/A Medicare Part A Medicare Part A [id number] N/A [facility] Comm Plan of [id number] N/A History of Encounters Visit Date Visit Type Provider 11/20/2016 Office visit RAKEL NAVARRO 10/15/2016 Office visit RAKEL NAVARRO 09/14/2016 Office visit RAKEL NAVARRO 09/11/2016 Office visit RAKEL NAVARRO 07/30/2016 Office visit RAKEL NAVARRO 05/10/2016 Office visit RAKEL NAVARRO 04/26/2016 Office visit RAKEL NAVARRO 04/09/2016 Office visit RAKEL NAVARRO 12/07/2015 Office visit RAKEL NAVARRO 11/17/2015 Office visit RAKEL NAVARRO 09/21/2015 Office visit RAKEL NAVARRO 07/18/2015 Office visit RAKEL NAVARRO 07/07/2015 Office visit RAKEL NAVARRO
--- OUTSIDE RECORDS SUMMARY | 2017-06-05 06:37 | XMS REPORT ---
Author Author RAKEL YEBOAH [facility] Address [address] [place], [place] [id number] Care Team Providers Care Molded Goods Embossing Press Operator Name Role Phone RAKEL YEBOAH PCP Unavailable [...] episode depressed, with mixed features Active 11/18/2015 Peripheral edema Active 12/14/2015 Vital Signs Date Time BP-Sys(mm[Hg] BP-Yady(mm[Hg]) HR(bpm) RR(rpm) Temp WT HT HC BMI BSA BMI Percentile O2 Sat(%) 12/07/2015 11:14:00 AM 112 mmHg 62 mmHg [...] BILI 0.40 mg/dLCALCIUM 8.60 mg/dLeGFR >60 mL/min/1.73m History Of Immunizations Not available. History of Past Illness Name Date of Onset Comments bipolar Constipation Hyperlipidemia Hypothyroidism Chronic pain of multiple sites 11/18/2015 Bipolar I disorder, mild, current or most recent episode depressed, with mixed features 11/18/2015 Peripheral edema 12/14/2015 Hypothyroidism, Acquired Jul 07 2015 11:20AM Constipation [...] Mild Chronic Polyarthralgia Dec 07 2015 11:15AM Payers Insurance Name Company Name Plan Name Plan Number Policy Number Policy Group Number Start Date Medicare Part A Medicare Part A [id number] N/A [facility] Comm [id number] N/A [facility] Plan of [id number] N/A History of Encounters Visit Date Visit Type Provider 12/07/2015 Office visit RAKEL NAVARRO 11/17/2015 Office visit RAKEL NAVARRO 09/21/2015 Office visit RAKEL NAVARRO 07/18/2015 Office visit RAKEL NAVARRO 07/07/2015 Office visit RAKEL NAVARRO
--- OUTSIDE RECORDS SUMMARY | 2017-06-05 06:37 | XMS REPORT ---
Author Author STANLEY BUNCH [facility] e[employer] Address Unknown Phone Unavailable Care Team Providers Care Casket Trimmer Name Role Phone STANLEY BUNCH CP Unavailable Allergies, Adverse Reactions, Alerts Substance Reaction Event Type Penicillin G Sodium Info Not Available Drug Allergy Problems Problem Type Condition Code Onset Dates Condition Status Assessment Dental examination V72.2 Active Medications Medication Code System Code Instructions Start Date End Date Status Dosage Colace Adult NDC 0 not defined [place] [facility] [address]-05 5-325 MG Orally every 6 hrs Jun 01, 2015May 1 tablet as needed ibuprofen NDC 0 not defined Bisacodyl [facility] [address] not defined Acetaminophen [facility] [address]-39 not defined Zantac [facility] [address]-87 not defined Imodium A-D [facility] [address]-33 not defined Maalox [facility] [address]-51 not defined Crestor [facility] [address]-69 not defined Detrol [facility] [address]-23 not defined Clozaril [facility] [address]-49 not defined Milk of Magnesia [facility] [address]-74 not defined Metamucil Smooth Texture [facility] [address] not defined Clozaril [facility] [address]-16 not defined Levothroid NDC 0 not defined Procedures Procedure Coding System Code Date EXTRAC ERUPTED TOOTH/EXPOSED ROOT CPT-4 D7140 Jun 01, 2015 Vital Signs Date/Time: Jun 01, 2015 Blood Pressure Diastolic 72 mmHg Blood Pressure Systolic 116 mmHg Results No Known Results Summary Purpose eClinicalWorks Submission
--- OUTSIDE RECORDS SUMMARY | 2017-06-05 06:37 | XMS REPORT ---
Author Author RAKEL YEBOAH [facility] Address [address] [place], [place] [id number] Care Team Providers Care Plywood Patcher Name Role Phone RAKEL YEBOAH PCP Unavailable [...] HC BMI BSA BMI Percentile O2 Sat(%) 10/15/2016 10:12:00 AM 151 mmHg 82 mmHg 80 bpm 18 rpm 96.6 F 252 lbs 70 in 36.16 kg/m2 2.38 m2 96 % 09/14/2016 11:01:00 AM 145 mmHg 64 mmHg 70 bpm 16 rpm 98.2 F 258 lbs 90 % 09/11/2016 2:53:00 PM 138 mmHg 65 mmHg 73 bpm 18 rpm 98.9 F 250 lbs 70 in 35.87 kg/m2 2.37 m2 91 % 07/30/2016 2:27:00 PM 130 mmHg 80 mmHg 83 bpm 18 rpm 97.4 F 70 in 97 % 05/10/2016 11:05:00 AM 122 mmHg 65 mmHg 108 bpm 16 rpm 98.4 F 249 lbs 70 in 35.73 kg/m2 2.36 m2 96 % 04/26/2016 2:44:00 PM 130 mmHg 84 mmHg 99 bpm 18 rpm 98.7 F 250.5 lbs 70 in 35.9426 kg/m 2.3689 m 95 % 04/09/2016 2:20:00 PM 110 mmHg 74 mmHg 82 bpm 18 rpm 97.2 F 250 lbs 70 in 35.87 kg/m2 2.37 m2 92 % 12/07/2015 11:14:00 AM 112 mmHg 62 mmHg 69 bpm 96.6 F 219 lbs 70 in 31.4229 kg/m 2.215 m 96 % 11/17/2015 2:25:00 PM 130 mmHg 69 mmHg 82 bpm 18 rpm 96.1 F 232 lbs 70 in 33.29 kg/m2 2.28 m2 96 % 09/21/2015 10:11:00 AM 123 mmHg 73 mmHg 95 bpm 16 rpm 96.6 F 195.25 lbs 91 % 07/18/2015 3:28:00 PM 110 mmHg 62 mmHg 96 bpm 18 rpm 97 F 196 lbs 70 in 28.12 kg/m2 2.10 m2 94 % 07/07/2015 11:20:00 AM 121 mmHg 70 mmHg 70 bpm 16 rpm 98.8 F 196 lbs 69 in 28.9438 kg/m 2.0804 m 98 % Social History Name Description Comments smoking Never Alcohol Never Uses seatbelts Current every day Exercises regularly Never Tobacco Never smoker History of Procedures Date Ordered Description Order Status 09/14/2016 12:00 AM THERAPEUTIC PROPHYLACTIC/DX INJECTION SUBQ/IM Reviewed 09/14/2016 12:00 AM Decadron 8mg Injection, [facility] Medicare Reviewed 09/14/2016 12:00 AM Depo-Medrol 80mg Injection, [facility] Medicare Reviewed Results Summary Data and Description [...] with medication regimen Oct 15 2016 10:13AM Payers Insurance Name Company Name Plan Name Plan Number Policy Number Policy Group Number Start Date Medicare [facility] Medicare [facility] [id number] N/A [facility] Comm [id number] N/A Medicare Part A Medicare - Lab/Xray [id number] N/A Medicare Part A Medicare Part A [id number] N/A [place] [facility] [place] [facility] Plan of [id number] N/A History of Encounters Visit Date Visit Type Provider 10/15/2016 Office visit RAKEL NAVARRO 09/14/2016 Office [...]
--- OUTSIDE RECORDS SUMMARY | 2017-06-05 06:37 | XMS REPORT ---
Author Author [facility] Medical Staff Organization [facility] Address [address] [id number] Phone [phone] Care Team Providers Care Edi Programmer Name Role Phone FAUZIA VALENTIN, OLIVER PORTER [phone] Summary purpose TRANSITION OF CARE AUTO GENERATION Chief Complaint and Reason for Visit Admit Diagnosis 1 HYPOTHYROIDISM NOS Problem list No authorized problems tracked for [...] Relevant diagnostic tests and/or laboratory data RESULTS Hematology [id number]:10:00 Result Normal Range Units WBC 5.2 4.8-10.8 103/uL RBC 5.4 4.7-6.1 106/uL HGB 15.0 13.0-18.0 g/dl HCT 43.4 41.9-52.0 % MCV 80.5 80-94 FL MCH 27.8 27-31 pg MCHC 34.6 33-37 g/dl RDW 14.6 11.5-15.5 % PLT L 127 130-400 103/uL MPV H 11.1 7.3-10.4 FL Neutro % 57.6 40-70 % Lymph % 29.6 20-40 % [place] % H 11.8 0-10.0 % Eos % 0.8 0-7.0 % Baso % 0.2 0-2 % Neutro # 3.0 1.5-7.5 103/uL Lymph # 1.5 0.9-4.0 103/uL [place] # 0.6 0-0.8 103/uL Eos # 0.0 0-0.6 103/uL Baso # 0.0 0-0.1 103/uL Radiology Results [id number]:10:00 Result Normal Range Units MPV H 11.1 7.3-10.4 FL History of procedures Procedure Code Code Type Description Date Performed Performing Physician 61541 CPT-4 COMPLETE CBC W/AUTO DIFF WBC 02-08-2015 OLIVER OROSCOHAM Functional status No functional or cognitive status [...]
--- OUTSIDE RECORDS SUMMARY | 2017-06-05 06:38 | XMS REPORT ---
Author Author [facility] Staff Organization [facility] Address [address] [id number] Phone [phone] Care Team Providers Care Straightening Press Operator Name Role Phone OLIVER CAGE MD PP [phone] Summary purpose TRANSITION OF CARE AUTO GENERATION Chief Complaint and Reason for Visit No authorized Reason for Visit (Admitting Diagnosis) is available for this visit. Problem list No authorized problems tracked for [...] Relevant diagnostic tests and/or laboratory data RESULTS Therapeutic Drug Monitoring :00:00 Result Normal Range Units Valproic Acid (Depakote) 71.3 50-100 ug/ml Chemistry [id number]:00:00 Result Normal Range Units TP - Total Protein 7.3 6.0-8.3 g/dl Albumin 4.2 3.5-5 g/dl Bilirubin - Total 0.6 0.1-1.0 mg/dl Direct Bilirubin 0.1 0-0.3 mg/dl Bilirubin Indirect 0.5 0.1-1.0 mg/dl AST 18 10-42 IU/L ALT 25 12-65 IU/L ALP 92 39-107 IU/L Albumin/Globulin Ratio 1.4 0-8 Hematology :00:00 Result Normal Range Units WBC 6.0 4.8-10.8 103/uL RBC 5.9 4.7-6.1 106/uL HGB 16.2 13.0-18.0 g/dl HCT 49.5 41.9-52.0 % MCV 84.5 80-94 FL MCH 27.6 27-31 pg MCHC L 32.7 33-37 g/dl RDW 13.5 11.5-15.5 % PLT L 110 130-400 103/uL MPV H 10.7 7.3-10.4 FL Neutro % 57.2 40-70 % Lymph % 33.3 20-40 % [place] % 9.0 0-10.0 % Eos % 0.0 0-7.0 % Baso % 0.3 0-2 % Neutro # 3.4 1.5-7.5 103/uL Lymph # 2.0 0.9-4.0 103/uL [place] # 0.5 0-0.8 103/uL Eos # 0.0 0-0.6 103/uL Baso # 0.0 0-0.1 103/uL Cardiac :00:00 Result Normal Range Units CK L 15 39-308 IU/L Thyroid Testing :00:00 Result Normal Range Units TSH 0.46 0.36-3.74 uIU/mL Radiology Results :00:00 Result Normal Range Units MPV H 10.7 7.3-10.4 FL History of procedures No procedures recorded for this patient visit. Functional status No functional or cognitive status [...]
--- OUTSIDE RECORDS SUMMARY | 2017-06-05 06:38 | XMS REPORT ---
Author BALA Kumar [facility] Address [address] [place], [place] [id number] Care Team Providers Care Visual Merchandising Coordinator Name Role Phone BALA YEBOAH PCP Unavailable BALA YEBOAH PreferredProvider Unavailable Allergies and Adverse Reactions Name Reaction [...] obesity due to excess calories Active 10/15/2016 Adult hypothyroidism Active 02/05/2017 Medication management Active 02/05/2017 Insomnia due to other mental disorder Active 02/05/2017 Unsteadiness on feet Active 02/05/2017 Generalized muscle weakness Active 02/05/2017 Vital Signs Date Time BP-Sys(mm[Hg] BP-Yady(mm[Hg]) HR(bpm) RR(rpm) Temp WT HT HC BMI BSA BMI Percentile O2 Sat(%) 01/28/2017 10:48:00 AM 134 mmHg 92 mmHg 70 bpm 16 rpm 97.1 F 258 lbs 70 in 37.02 kg/m2 2.40 m2 94 % 12/10/2016 1:55:00 PM 130 mmHg 76 mmHg 93 bpm 16 rpm 96.5 F 250 lbs 70 in 35.8709 kg/m 2.3666 m 96 % 11/20/2016 1:22:00 PM 109 mmHg 52 mmHg [...] Reviewed 09/14/2016 12:00 AM Decadron 8mg Injection, [facility] Medicare Reviewed 09/14/2016 12:00 AM Depo-Medrol 80mg Injection, [facility] Medicare Reviewed 11/20/2016 12:00 AM THERAPEUTIC PROPHYLACTIC/DX INJECTION SUBQ/IM Reviewed 11/20/2016 12:00 AM Decadron 8mg Injection, [facility] Medicare Reviewed 11/20/2016 12:00 AM Depo-Medrol 80mg Injection, [facility] Medicare Reviewed 11/20/2016 12:00 AM Rocephin 1 gram Injection, [facility] Medicare Reviewed Results Summary Date and Description Results 04/05/2015 2:34 PM WBC [...] Morbid obesity due to excess calories 10/15/2016 Adult hypothyroidism 02/05/2017 Medication management 02/05/2017 Insomnia due to other mental disorder 02/05/2017 Unsteadiness on feet 02/05/2017 Generalized muscle weakness 02/05/2017 Hypothyroidism, Acquired Jul 07 2015 11:20AM Constipation [...] infection, unspecified type Nov 20 2016 1:24PM Advanced dementia Jan 28 2017 10:49AM Pain, unspecified Jan 28 2017 10:49AM Other chronic pain Jan 28 2017 10:49AM Depression, major, recurrent, severe with psychosis Jan 28 2017 10:49AM Generalized edema Jan 28 2017 10:49AM Morbid obesity due to excess calories Jan 28 2017 10:49AM Patient's noncompliance with dietary regimen Jan 28 2017 10:49AM Patient's other noncompliance with medication regimen Jan 28 2017 10:49AM Adult hypothyroidism Jan 28 2017 10:49AM Generalized muscle weakness Jan 28 2017 10:49AM Unsteadiness on feet Jan 28 2017 10:49AM Insomnia due to other mental disorder Jan 28 2017 10:49AM Mental disorder, not otherwise specified Jan 28 2017 10:49AM Medication management Jan 28 2017 10:49AM Payers Insurance Name Company Name Plan Name Plan Number Policy Number Policy Group Number Start Date Medicare RHC Medicare RHC [id number] N/A [facility] [id number] N/A Medicare Part A Medicare - Lab/Xray [id number] N/A Medicare Part A Medicare Part A [id number] N/A [facility] Comm Plan of [id number] N/A History of Encounters Visit Date Visit Type Provider 01/28/2017 Office visit BALA NAVARRO 12/10/2016 Office visit Bala Campo MD 11/20/2016 Office visit BALA NAVARRO 10/15/2016 Office visit BALA NAVARRO 09/14/2016 Office visit BALA NAVARRO 09/11/2016 Office visit BALA NAVARRO 07/30/2016 Office visit BALA NAVARRO 05/10/2016 Office visit BALA NAVARRO 04/26/2016 Office visit BALA NAVARRO 04/09/2016 Office visit BALA NAVARRO 12/07/2015 Office visit BALA NAVARRO 11/17/2015 Office visit BALA NAVARRO 09/21/2015 Office visit BALA NAVARRO 07/18/2015 Office visit BALA NAVARRO 07/07/2015 Office visit BALA NAVARRO
--- OUTSIDE RECORDS SUMMARY | 2017-06-05 06:39 | XMS REPORT ---
Author RAKEL Kumar [facility] Address [address] [address] [place], [place] [id number] Care Team Providers Care First Assistant Name Role Phone RAKEL YEBOAH PCP Unavailable [...] HC BMI BSA BMI Percentile O2 Sat(%) 05/10/2016 11:05:00 AM 122 mmHg 65 mmHg [...] SCREEN NEGATIVE 02/23/2016 6:35 AM TSH 3.320 uIU/mL 02/29/2016 3:53 PM WBC 5.6 RBC 5.22 [...] Chronic Peripheral edema May 10 2016 11:06AM Payers Insurance Name Company Name Plan Name Plan Number Policy Number Policy Group Number Start Date Medicare Part A Medicare RHC [id number] N/A [facility] Comm [id number] N/A Medicare Part A Medicare - Lab/Xray [id number] N/A Medicare Part A Medicare Part A [id number] N/A [facility] Comm Plan of [id number] N/A History of Encounters Visit Date Visit Type Provider 05/10/2016 Office visit RAKEL NAVARRO 04/26/2016 Office visit RAKEL NAVARRO 04/09/2016 Office visit RAKEL NAVARRO 12/07/2015 Office visit RAKEL YEBOAH PA 11/17/2015 Office visit RAKEL YEBOAH PA 09/21/2015 Office visit RAKEL YEBOAH PA 07/18/2015 Office visit RAKEL YEBOAH PA 07/07/2015 Office visit RAKEL NAVARRO
--- OUTSIDE RECORDS SUMMARY | 2017-06-05 06:40 | XMS REPORT ---
Author [facility] Medical Staff Organization [facility] Address [address] [id number] Phone [phone] Care Team Providers Care Fine Grade Bulldozer Operator Name Role Phone FAUZIA VALENTIN, OLIVER PP [phone] Summary purpose TRANSITION OF CARE AUTO GENERATION [...] visit Relevant diagnostic tests and/or laboratory data No authorized results are available for this patient visit History of procedures Procedure Code Code Type Description Date Performed Performing Physician A0427 CPT-4 ALS1-EMERGENCY 06-14-2015 OLIVER CAGE A0425 CPT-4 GROUND MILEAGE 06-14-2015 OLIVER CAGE Functional status No functional or cognitive status [...]
--- OUTSIDE RECORDS SUMMARY | 2017-06-05 06:40 | XMS REPORT ---
Author RAKEL Kumar [facility] Address [address] [place], [place] [phone] Care Team Providers Care Skills Trainer Name Role Phone RAKEL YEBOAH PCP Unavailable [...] (4 mg) by oral route once daily Crestor 20 mg oral tablet take 1 tablet (20 mg) by oral route once daily at bedtime Milk of Magnesia 400 mg/5 mL oral suspension bisacodyl 5 mg oral tablet,delayed release (DR/EC) Imodium A-D 1 mg/7.5 mL oral liquid acetaminophen 500 mg/5 mL oral liquid ibuprofen 200 mg oral tablet Maalox Maximum Strength 400-400-40 mg/5 mL oral suspension Problem List Not available. Vital Signs Date Time BP-Sys(mm[Hg] BP-Yady(mm[Hg]) HR(bpm) RR(rpm) Temp WT HT HC BMI BSA BMI Percentile O2 Sat(%) 09/21/2015 10:11:00 AM 123 mmHg 73 mmHg [...] seatbelts Current every day Exercises regularly Never History of Procedures Not available. Results Summary [...] EOS 0.08 #BASO 0.01 EOS 2.0 % History Of Immunizations Not available. History of Past Illness Name Date of Onset Comments bipolar Constipation Hyperlipidemia Hypothyroidism Hypothyroidism, Acquired Jul 07 2015 11:20AM Constipation [...] 2015 10:12AM Labyrinthitis Sep 21 2015 10:12AM Payers Insurance Name Company Name Plan Name Plan Number Policy Number Policy Group Number Start Date Medicare Part A Medicare Part A [id number] N/A [facility] - RHC - Community Plan of [facility] RHC Comm [id number] N/A [facility] Community [facility] Comm Plan of [id number] N/A History of Encounters Visit Date Visit Type Provider 09/21/2015 Office visit RAKEL NAVARRO 07/18/2015 Office visit RAKEL NAVARRO 07/07/2015 Office visit RAKEL NAVARRO
--- OUTSIDE RECORDS SUMMARY | 2017-06-05 06:40 | XMS REPORT ---
Author Author [facility] Medical Staff Organization [facility] Address [address] [id number] Phone [phone] Care Team Providers Care Telemetry Tech Name Role Phone OLIVER CAGE MD, PP [phone] Summary purpose TRANSITION OF CARE AUTO GENERATION [...] diagnostic tests and/or laboratory data RESULTS Hematology [id number]:10:00 Result Normal Range Units WBC 5.2 4.8-10.8 103/uL RBC 5.4 4.7-6.1 106/uL HGB 15.0 13.0-18.0 g/dl HCT 43.4 41.9-52.0 % MCV 80.5 80-94 FL MCH 27.8 27-31 pg MCHC 34.6 33-37 g/dl RDW 14.6 11.5-15.5 % PLT L 127 130-400 103/uL MPV H 11.1 7.3-10.4 FL Neutro % 57.6 40-70 % Lymph % 29.6 20-40 % [place] % H 11.8 0-10.0 % Eos % 0.8 0-7.0 % Baso % 0.2 0-2 % Neutro # 3.0 1.5-7.5 103/uL Lymph # 1.5 0.9-4.0 103/uL [place] # 0.6 0-0.8 103/uL Eos # 0.0 0-0.6 103/uL Baso # 0.0 0-0.1 103/uL Radiology Results [id number]:10:00 Result Normal Range Units MPV H 11.1 7.3-10.4 FL History of procedures No procedures [...]
--- OUTSIDE RECORDS SUMMARY | 2017-06-05 06:42 | XMS REPORT ---
Author RAKEL Kumar [facility] Address [address] [place], [place] [address] Care Team Providers Care Manager House Name Role Phone RAKEL YEBOAH PCP Unavailable [...] HC BMI BSA BMI Percentile O2 Sat(%) 07/18/2015 3:28:00 PM 110 mmHg 62 mmHg [...] BILI 0.80 mg/ dLCALCIUM 9.60 mg/dLeGFR 41 History Of Immunizations Not available. History of [...] of unspecified type Jul 18 2015 3:28PM Payers Insurance Name Company Name Plan Name Plan Number Policy Number Policy Group Number Start Date Medicare Part A Medicare Part A [id number] N/A [facility] [place] [facility] Plan of [id number] N/A History of Encounters Visit Date Visit Type Provider 07/18/2015 Office visit RAKEL NAVARRO 07/07/2015 Office visit RAKEL NAVARRO
--- OUTSIDE RECORDS SUMMARY | 2017-06-05 06:42 | XMS REPORT ---
Author BALA Kumar [facility] Address [address] [place], [place] [phone] Care Team Providers Care Drupal Developer Name Role Phone BALA YEBOAH PCP Unavailable [...] Reviewed 09/14/2016 12:00 AM Decadron 8mg Injection, [facility] Medicare Reviewed 09/14/2016 12:00 AM Depo-Medrol 80mg Injection, [facility] Medicare Reviewed 11/20/2016 12:00 AM THERAPEUTIC PROPHYLACTIC/DX INJECTION SUBQ/IM Reviewed 11/20/2016 12:00 AM Decadron 8mg Injection, [facility] Medicare Reviewed 11/20/2016 12:00 AM Depo-Medrol 80mg [...] 10:49AM Medication management Jan 28 2017 10:49AM Abdominal Pain, Right Upper Quadrant Dec 10 2016 1:56PM Colon Cancer Screening Dec 10 2016 1:56PM Payers Insurance Name Company Name Plan Name Plan Number Policy Number Policy Group Number Start Date Medicare RHC Medicare RHC [id number] N/A [facility] - C - Community Plan [facility] RHC Comm [id number] N/A Medicare Part A Medicare - Lab/Xray [id number] N/A Medicare Part A Medicare Part A [id number] N/A [facility] Comm Plan of [id number] N/A History of Encounters Visit Date Visit [...]
--- OUTSIDE RECORDS SUMMARY | 2017-06-05 06:42 | XMS REPORT ---
Author Author RAKEL YEBOAH [facility] Address [address] [place], [place] [address] Care Team Providers Care Locker Attendant Name Role Phone RAKLE YEBOAH PCP Unavailable Allergies and Adverse Reactions [...] HC BMI BSA BMI Percentile O2 Sat(%) 07/07/2015 11:20:00 AM 121 mmHg 70 mmHg [...] 0.01 EOS 2.0 %ATYP LYMPHS FEW % History Of Immunizations Not available. History of Past Illness Name Date of Onset Comments bipolar Constipation Hyperlipidemia Hypothyroidism Hypothyroidism, Acquired Jul 07 2015 11:20AM Constipation Jul 07 2015 11:20AM Bipolar affective disorder Jul 07 2015 11:20AM Mild Hypertonicity of bladder Jul 07 2015 11:20AM Payers Insurance Name Company Name Plan Name Plan Number Policy Number Policy Group Number Start Date Medicare Part A Medicare Part A [id number] N/A [facility] Plan of [id number] N/A History of Encounters Visit Date Visit Type Provider 07/07/2015 Office visit RAKEL NAVARRO
--- OUTSIDE RECORDS SUMMARY | 2017-06-05 06:43 | XMS REPORT ---
Author Author RAKEL YEBOAH [facility] Address [address] [facility] [address] [place], [place] [address] Care Team Providers Care Matrix Supervisor Name Role Phone RAKEL YEBOAH PCP Unavailable [...] days 3x2 days 2x2 days 1x2 days Name Start Date Expiration Date SIG [...] Acute Sputum production Sep 11 2016 2:54PM Payers Insurance Name Company Name Plan Name Plan Number Policy Number Policy Group Number Start Date Medicare Part A Medicare RHC [id number] N/A [facility] - RHC - Community Plan [facility] Comm [id number] N/A Medicare Part A Medicare - Lab/Xray [id number] N/A Medicare Part A Medicare Part A [id number] N/A [facility] Comm Plan of [id number] N/A History of Encounters Visit Date Visit [...]
--- OUTSIDE RECORDS SUMMARY | 2017-06-05 06:44 | XMS REPORT | CCD ---
Author Author LUIS EDUARDO LIVE Unknown Address [address] [place] [address] Care Team Providers Care Battery Stacker Name Role Phone DANIELLE VALENTIN, RAKEL Peterson Attphynafisa DANIELLE VALENTIN, RAKEL Castillo Allergies Allergy Code Allergy Type Reaction Status PENICILLIN 66388 Drug allergy Active Active Medications Unknown or Not Available. Problems Unknown or Not Available. Procedures Procedure Code Procedure Type Date CX CHEST [id number] 09/08/2016 CULTURE BLOOD 20224735 SNOMED [address] 09/08/[address] 09/08/2016 C REACTIVE PROTEIN 28438009 SNOMED CT 09/08/2016 COMPREHENSIVE METABOLIC PANEL 787854903 SNOMED CT 2015 CBC W/ AUTO DIFF (RFLX MAN DIFF IF IND) 1913705 SNOMED CT 09/08/2016 ^CBC W/ MANUAL DIFF 71489742 SNOMED CT 09/08/2016 BAN AERO ECLIPSE TREATMENT 54697648 OMED CT 09/08/2016 Results COMPREHENSIVE METABOLIC PANEL - Collect Date/Time: 09/08/2016 17:55 Test Name Code Test Result Test Units Test Ref Range GLUCOSE 2345-7 139 MG/DL L=70 H=100 SODIUM 2951-2 136 MEQ/L L=135 H=148 POTASSIUM 2823-3 4.6 MEQ/L L=3.5 H=5.3 CHLORIDE 2075-0 100 MEQ/L L=96 H=110 CO2 2028-9 25 MEQ/L L=22 H=29 BUN 3094-0 15 MG/DL L=8 H=22 CREATININE 2160-0 1.1 MG/DL L=0.6 H=1.6 SGOT/AST 1920-8 25 IU/L L=10 H=40 SGPT/ALT 1742-6 24 IU/L L=8 H=54 ALK PHOS 6768-6 75 IU/L L=35 H=115 TOTAL PROTEIN 2885-2 6.8 G/DL L=5.5 H=8.5 ALBUMIN 1751-7 3.9 G/DL L=3.1 H=5.4 TOTAL BILI 1975-2 0.8 MG/DL L=0.0 H=1.5 CALCIUM 38863-6 9.4 MG/DL L=8.2 H=10.6 AGE 66 yrs GFR NonAA 67 GFR AA 81 eGFR >60 N/A eGFR AA* >60 N/A CBC W/ AUTO DIFF (RFLX MAN DIFF IF IND) - Collect Date/Time: 09/08/2016 17:55 Test Name Code Test Result Test Units Test Ref Range WBC 12411-3 10.2 TH/CMM L=4.5 H=10.8 RBC 789-8 4.88 ML/CMM L=4.70 H=6.10 HGB 718-7 14.0 G/DL L=14.0 H=18.0 HCT 4544-3 41.9 % L=42.0 H=52.0 MCV 86 FL L=81 H=99 MCH 28.7 PG L=27.0 H=33.0 MCHC 33.4 G/DL L=31.0 H=36.0 RDW SD 46 FL L=36 H=50 RDW CV 14.6 % L=0.0 H=14.8 MPV 8.7 FL L=9.3 H=12.5 PLT 777-3 90 TH/CMM L=130 H=440 NRBC# 0.00 TH/CMM L=0.00 H=0.00 NRBC% 0.0 /100WBC L=0.0 H=2.0 %NEUT 69.6 % %LYMP 7.7 % %MONO 19.0 % %EOS 0.2 % %BASO 0.5 % #NEUT 7.12 TH/CMM L=2.10 H=8.20 #LYMP 0.79 TH/CMM L=0.90 H=5.20 #MONO 1.95 TH/CMM L=0.16 H=1.00 #EOS 0.02 TH/CMM L=0.00 H=0.80 #BASO 0.05 TH/CMM L=0.00 H=0.20 SEGS 35 % BANDS 38 % LYMPHS 3 % MONOS 15 % METAS 2 % MYELO 1 % PLTS PLTS CHECKD N/A MANUAL DIFF SEE BELOW N/A TOXIC GRAN TOXIC GRAN N/A ATYP LYMPHS 6 N/A RESPIRATORY PANEL - Collect Date/Time: 09/08/2016 17:55 Test Name Code Test Result Test Units Test Ref Range Adenovirus Not Detected N/A NEG: Not Detected Coronavirus 229E Not Detected N/A NEG: Not Detected Coronavirus HKU1 Not Detected N/A NEG: Not Detected Coronavirus NL63 Not Detected N/A NEG: Not Detected Coronavirus OC43 Not Detected N/A NEG: Not Detected Human Metapneumoviru Not Detected N/A NEG: Not Detected Human Rhinov/Enterov DETECTED N/A NEG: Not Detected Influenza B Not Detected N/A NEG: Not Detected Parainfluenza Virus1 Not Detected N/A NEG: Not Detected Parainfluenza Virus2 Not Detected N/A NEG: Not Detected Parainfluenza Virus3 Not Detected N/A NEG: Not Detected Parainfluenza Virus4 Not Detected N/A NEG: Not Detected Resp Syncytial Virus Not Detected N/A NEG: Not Detected Bordetella pertussis Not Detected N/A NEG: Not Detected Chlamydophila pneumo Not Detected N/A NEG: Not Detected Mycoplasma pneumonia Not Detected N/A NEG: Not Detected C REACTIVE PROTEIN - Collect Date/Time: 09/08/2016 17:55 Test Name Code Test Result Test Units Test Ref Range C REACTIVE PROTEIN 1988-5 6.1 MG/DL L=0.0 H= 1.0 LACTIC ACID - Collect Date/Time: 09/08/2016 17:55 Test Name Code Test Result Test Units Test Ref Range LACTIC ACID 2524-7 1.6 mmol/L L=0.5 H=1.6 Function Status Unknown or Not Available. History of Immunizations Unknown or Not Available. Plan of Treatment Unknown or Not Available. Social History Smoking Status Code Start Date End Date Never smoker [id number] Vital Signs Unknown or Not Available. Function Status Unknown or Not Available. Goals Unknown or Not Available. ASSESSMENTS Unknown or Not Available. Health Concerns Section Unknown or Not Available.
--- OUTSIDE RECORDS SUMMARY | 2017-06-05 06:44 | XMS REPORT ---
Author Author ROSEMARY PARISH Organization [employer] Address Unknown Phone Unavailable Care Team Providers Care Student Teacher Name Role Phone ROSEMARY PARISH CP Unavailable Allergies No Known Allergies Problems Problem Type Condition ICD-9 Code Onset Dates Condition Status Assessment Dental examination V72.2 Active Medications No Known Medications Procedures Procedure Coding System Code Date INTRAORL-PERIAPICAL EA ADD FILM CPT-4 D0230 May 05, 2015 INTRAORL-PERIAPICAL EA ADD FILM CPT-4 D0230 May 05, 2015 INTRAORL-PERIAPICAL 1 FILM 67378 CPT-4 D0220 May 05, 2015 PROPHYLAXIS - ADULT CPT-4 D1110 May 05, 2015 PANORAMIC FILM SEE ALSO CODE 53318 CPT-4 D0330 May 05, 2015 TOPICAL FLUORIDE VARNISH CPT-4 D1206 May 05, 2015 INTRAORL-PERIAPICAL EA ADD FILM CPT-4 D0230 May 05, 2015 INTRAORL-PERIAPICAL EA ADD FILM CPT-4 D0230 May 05, 2015 INTRAORL-PERIAPICAL EA ADD FILM CPT-4 D0230 May 05, 2015 INTRAORL-PERIAPICAL EA ADD FILM CPT-4 D0230 May 05, 2015 Results No Known Results Summary Purpose [employer] Submission
--- OUTSIDE RECORDS SUMMARY | 2017-06-05 06:44 | XMS REPORT ---
Author [facility] Organization [facility] Address [address] [id number] Phone [phone] Care Team Providers Care Advertising Account Representative Name Role Phone OLIVER CAGE MD, PP [phone] Summary purpose TRANSITION OF CARE AUTO GENERATION Chief Complaint and Reason for Visit No authorized Reason for Visit (Admitting Diagnosis) is available for this visit. Problem list No authorized problems tracked for continuity of care are available for this visit. Encounters No authorized problems tracked for encounter diagnoses are available for this visit. Medications No home medications recorded for this patient visit Allergies, adverse reactions, alerts Allergen Category Ingredient Status Reaction Severity Onset Penicillins Drug Allergy Penicillins Confirmed or Verified Immunizations No immunizations recorded for this patient visit Relevant diagnostic tests and/or laboratory data RESULTS Therapeutic Drug Monitoring :15:00 Result Normal Range Units Valproic Acid (Depakote) 88.1 50-100 ug/ml Chemistry :15:00 Result Normal Range Units Glucose, Fasting H 106 70-105 mg/dl TP - Total Protein 6.7 6.0-8.3 g/dl Albumin 3.8 3.5-5 g/dl Bilirubin - Total 0.4 0.1-1.0 mg/dl Direct Bilirubin 0.1 0-0.3 mg/dl Bilirubin Indirect 0.3 0.1-1.0 mg/dl AST 12 10-42 IU/L ALT 19 12-65 IU/L ALP 93 39-107 IU/L Albumin/Globulin Ratio 1.3 0-8 Serial Glucose Reading :15:00 Result Normal Range Units Glucose, Fasting H 106 70-105 mg/dl Hematology :15:00 Result Normal Range Units WBC 6.1 4.8-10.8 103/uL RBC 5.3 4.7-6.1 106/uL HGB 14.5 13.0-18.0 g/dl HCT 43.7 41.9-52.0 % MCV 82.3 80-94 FL MCH 27.3 27-31 pg MCHC 33.2 33-37 g/dl RDW 15.4 11.5-15.5 % PLT L 128 130-400 103/uL MPV H 11.0 7.3-10.4 FL Neutro % 54.8 40-70 % Lymph % 32.2 20-40 % [place] % H 11.8 0-10.0 % Eos % 1.0 0-7.0 % Baso % 0.2 0-2 % Neutro # 3.4 1.5-7.5 103/uL Lymph # 2.0 0.9-4.0 103/uL [place] # 0.7 0-0.8 103/uL Eos # 0.1 0-0.6 103/uL Baso # 0.0 0-0.1 103/uL Radiology Results [id number]:15:00 Result Normal Range Units MPV H 11.0 7.3-10.4 FL History of procedures No procedures [...]
[2017-06-05] MEDS ORDERED: RT-ALBUTEROL/IPRATROPIUM 3 ML (DUONEB) VIAL INH ONE (06:45)
[2017-06-05] MEDS ORDERED: ACETAMINOPHEN 650 MG SUPP (TYLENOL) PR ONE (06:45)
--- OUTSIDE RECORDS SUMMARY | 2017-06-05 06:45 | XMS REPORT ---
Author RAKEL Kumar [facility] Address [address] [place], [place] [id number] Care Team Providers Care Product Specialist Name Role Phone RAKEL YEBOAH PCP Unavailable [...] with mixed features Apr 26 2016 2:45PM Payers Insurance Name Company Name Plan Name Plan Number Policy Number Policy Group Number Start Date Medicare Part A Medicare RHC [id number] N/A [facility] [id number] N/A Medicare Part A Medicare - Lab/Xray [id number] N/A Medicare Part A Medicare Part A [id number] N/A [facility] Plan of [id number] N/A History of Encounters Visit Date Visit Type Provider 04/26/2016 Office visit RAKEL NAVARRO 04/09/2016 Office visit RAKEL NAVARRO 12/07/2015 Office visit RAKEL NAVARRO 11/17/2015 Office visit RAKEL NAVARRO 09/21/2015 Office visit RAKEL NAVARRO 07/18/2015 Office visit RAKEL NAVARRO 07/07/2015 Office visit RAKEL NAVARRO
--- OUTSIDE RECORDS SUMMARY | 2017-06-05 06:45 | XMS REPORT ---
Author [facility] Medical Staff Organization [facility] Address [address] [id number] Phone [phone] Care Team Providers Care Traffic Analyst Name Role Phone OLIVER CAGE MD, PP [phone] Summary purpose TRANSITION OF CARE AUTO GENERATION [...] and/or laboratory data RESULTS Therapeutic Drug Monitoring [id number]:00 Result Normal Range Units Valproic Acid (Depakote) [...] 40-70 % Lymph % 32.2 20-40 % Rush % H 11.8 0-10.0 % Eos % 1.0 0-7.0 % Baso % 0.2 0-2 % Neutro # 3.4 1.5-7.5 103/uL Lymph # 2.0 0.9-4.0 103/uL Rush # 0.7 0-0.8 103/uL Eos # 0.1 0-0.6 103/uL Baso # 0.0 0-0.1 103/uL Radiology Results [id number]:00 Result Normal Range Units MPV H 11.0 7.3-10.4 FL History of procedures Procedure Code Code Type Description Date Performed Performing Physician 33762 CPT-4 HEPATIC FUNCTION PANEL 12-14-2014 OLIVER CAGE 57600 CPT-4 COMPLETE CBC W/AUTO DIFF WBC 12-14-2014 OLIVER CAGE 89592 CPT-4 ASSAY, DIPROPYLACETIC ACID 12-14-2014 OLIVER CAGE 99506 CPT-4 ASSAY, GLUCOSE, BLOOD QUANT 12-14-2014 OLIVER CAGE Functional status No functional or [...]
--- OUTSIDE RECORDS SUMMARY | 2017-06-05 06:46 | XMS REPORT ---
Author [facility] Medical Staff Organization [facility] Address [address] [id number] Phone [phone] Care Team Providers Care Thread Reeler Name Role Phone OLIVER CAGE MD PP [phone] Summary purpose TRANSITION OF CARE AUTO GENERATION [...] diagnostic tests and/or laboratory data RESULTS Chemistry [id number]:05:00 Result Normal Range Units Triglycerides H 200 35-160 mg/dl Cholesterol L 90 120-200 mg/dl HDL Cholesterol L 27 32-72 mg/dl VLDL Cholesterol 40 5-40 mg/dl LDL Cholesterol 43 30-100 mg/dl Hematology [id number]:05:00 Result Normal Range Units WBC 6.1 4.8-10.8 103/uL RBC 5.4 4.7-6.1 106/uL HGB 14.9 13.0-18.0 g/dl HCT 43.3 41.9-52.0 % MCV L 79.6 80-94 FL MCH 27.4 27-31 pg MCHC 34.4 33-37 g/dl RDW 14.8 11.5-15.5 % PLT 134 130-400 103/uL MPV H 10.9 7.3-10.4 FL Neutro % 53.8 40-70 % Lymph % 33.1 20-40 % Martin % H 12.4 0-10.0 % Eos % 0.5 0-7.0 % Baso % 0.2 0-2 % Neutro # 3.3 1.5-7.5 103/uL Lymph # 2.0 0.9-4.0 103/uL Martin # 0.8 0-0.8 103/uL Eos # 0.0 0-0.6 103/uL Baso # 0.0 0-0.1 103/uL Special Chemistry :05:00 Result Normal Range Units Hemoglobin A1C 6.0 4.5-6.2 % Reference Lab (Sendout) :05:00 Result Normal Range Units PSA 2.79 0-4.0 [...] should be interpreted with caution. Radiology Results 05:00 Result Normal Range Units MPV H 10.9 7.3-10.4 FL History of procedures No procedures [...]
--- OUTSIDE RECORDS SUMMARY | 2017-06-05 06:46 | XMS REPORT ---
Author [facility] Medical Staff Organization [facility] Address [address] [id number] Phone [phone] Care Team Providers Care Mortgage Banker Name Role Phone OLIVER CAGE MD, PP [phone] Summary purpose TRANSITION OF CARE AUTO GENERATION [...] Valproic Acid (Depakote) 71.3 50-100 ug/ml Chemistry :00:00 Result Normal Range Units TP - Total [...] 40-70 % Lymph % 33.3 20-40 % Angelina % 9.0 0-10.0 % Eos % 0.0 0-7.0 % Baso % 0.3 0-2 % Neutro # 3.4 1.5-7.5 103/uL Lymph # 2.0 0.9-4.0 103/uL Angelina # 0.5 0-0.8 103/uL Eos # 0.0 0-0.6 103/uL Baso # 0.0 0-0.1 103/uL Cardiac [id number]:00:00 Result Normal Range Units CK L 15 39-308 IU/L Thyroid Testing [id number]:00:00 Result Normal Range Units TSH 0.46 0.36-3.74 uIU/mL Radiology Results [id number]:00:00 Result Normal Range Units MPV H 10.7 7.3-10.4 FL History of procedures Procedure Code Code Type Description Date Performed Performing Physician 40398 CPT-4 COMPLETE CBC W/AUTO DIFF WBC 03-08-2015 OLIVER CAGE 70076 CPT-4 ASSAY OF CK (CPK) 03-08-2015 OLIVER CAGE 65209 CPT-4 ASSAY THYROID STIM HORMONE 03-08-2015 OLIVER CAGE 83473 CPT-4 ASSAY, DIPROPYLACETIC ACID 03-08-2015 OLIVER CAGE 23034 CPT-4 HEPATIC FUNCTION PANEL 03-08-2015 OLIVER CAGE Functional status No functional or [...]
--- OUTSIDE RECORDS SUMMARY | 2017-06-05 06:46 | XMS REPORT ---
Author Author RAKEL YEBOAH [facility] Address [address] [place], [place] [id number] Care Team Providers Care Cardiologist Name Role Phone RAKEL YEBOAH PCP Unavailable [...] HC BMI BSA BMI Percentile O2 Sat(%) 07/30/2016 2:27:00 PM 130 mmHg 80 mmHg [...] A1C 5.60 %Est Avg Glucose 114.0 mg/dL History Of Immunizations Not available. History of [...] 2:28PM Advanced dementia Jul 30 2016 2:28PM Payers Insurance Name Company Name Plan Name Plan Number Policy Number Policy Group Number Start Date Medicare Part A Medicare [facility] [id number] N/A [facility] Comm [id number] N/A Medicare Part A Medicare - Lab/Xray [id number] N/A Medicare Part A Medicare Part A [id number] N/A [facility] Plan of [id number] N/A History of Encounters Visit Date Visit Type Provider 07/30/2016 Office visit RAKEL NAVARRO 05/10/2016 Office visit RAKEL NAVARRO 04/26/2016 Office visit RAKEL NAVARRO 04/09/2016 Office visit RAKEL NAVARRO 12/07/2015 Office visit RAKEL NAVARRO 11/17/2015 Office visit RAKEL NAVARRO 09/21/2015 Office visit RAKEL NAVARRO 07/18/2015 Office visit RAKEL NAVARRO 07/07/2015 Office visit RAKEL NAVARRO
[2017-06-05 06:50] LABS: BASOPHILS % (AUTO) 0 % (0-10); EOSINOPHILS % (AUTO) 0 % (0-10); LYMPHOCYTES # (AUTO) 1.1 X 10^3 (1.0-4.0); LYMPHOCYTES % (AUTO) 8 % (12-44); MEAN CORPUSCULAR HEMOGLOBIN 30 PG (25-34); MEAN CORPUSCULAR HGB CONC 34 G/DL (32-36); MEAN CORPUSCULAR VOLUME 87 FL (80-99); MEAN PLATELET VOLUME 8.9 FL (7.4-10.4); MONOCYTES # (AUTO) 1.9 X 10^3 (0.0-1.0); MONOCYTES % (AUTO) 14 % (0-12); NEUTROPHILS # (AUTO) 10.8 X 10^3 (1.8-7.8); NEUTROPHILS % (AUTO) 78 % (42-75); PLATELET COUNT 88 10^3/uL (130-400); RED BLOOD COUNT 5.11 10^6/uL (4.35-5.85); WHITE BLOOD COUNT 13.9 10^3/uL (4.3-11.0)
[2017-06-05] MEDS ORDERED: NS IV 1000 ML 1,000 ML IV ONE ×3 (06:57→08:02)
[2017-06-05 07:02] LABS: PROTHROMBIN TIME PATIENT 13.4 SEC (12.2-14.7)
--- NOTE | 2017-06-05 07:05 | ED General ---
General Chief Complaint: General Problems/Pain Stated Complaint: SEPTIC Nursing Triage Note: Patient brought in by EMS from [facility] with c/o fever and decreased LOC Nursing Sepsis Screen: Possible Severe Sepsis Risk Source of Information: Patient, Group Home Records, Other (prison staff ) Exam Limitations: No Limitations History of Present Illness Time Seen by Provider: 06:25 Initial Comments This 66-year-old resident of [facility] in [place] presents via EMS with altered mental status and fever. History is obtained from both EMS and prison staff. Patient was last seen well as 02:30 but was noted to be a little shaky at that time. EMS was then activated at 05:30 after patient was found to be febrile and with severely decreased level of consciousness. Patient was only responsive to painful stimuli for EMS. He was noted to have a tremor. Pupils were constricted and Narcan 2 mg was administered by EMS. There was minimal response. Staff reports that he is normally alert and oriented 4. He has a rather flat affect and is very hard of hearing. He has problems with depression and psychosis. He has lower extremity weakness and deficits resulting in a minimally ambulatory state. He is wheelchair dependent for his safety. Patient also has COPD. Temperature at the prison was 102. He is tachycardic with a heart rate in the 120s. EMS administered a liter of IV fluids. Patient is new to this facility and we have no prior admission records. Allergies and Home Medications Allergies Coded Allergies: aspirin (Verified Allergy, Unknown, 06/05/17) Constitutional: see HPI EENTM: see HPI Respiratory: no symptoms reported Cardiovascular: see HPI Gastrointestinal: no symptoms reported Genitourinary: no symptoms reported Musculoskeletal: no symptoms reported Skin: no symptoms reported Psychiatric/Neurological: See HPI Hematologic/Lymphatic: No Symptoms Reported Immunological/Allergic: no symptoms reported Past Kotbpij-Ojjlab-Oujaoh Hx Patient Social History Alcohol Use: Denies Use Recreational Drug Use: No Smoking Status: Unknown if Ever Smoked Recent Foreign Travel: No Contact w/Someone Who Travel: No Recent Infectious Disease Expo: No Physical Abuse: No Sexual Abuse: No Surgeries History of Surgeries: No (unknown) Respiratory History of Respiratory Disorde: Yes Respiratory Disorders: COPD Cardiovascular History of Cardiac Disorders: No Neurological History of Neurological Disord: Yes Neurological Disorders: Parkinson's Disease (secondary to medication effect) Genitourinary History of Genitourinary Disor: Yes Genitourinary Disorders: Prostate Problems Gastrointestinal History of Gastrointestinal Di: Yes Gastrointestinal Disorders: Chronic Constipation Musculoskeletal History of Musculoskeletal Dis: Yes (lower extremity weakness/discoordination, wheelchair dependent) Endocrine History of Endocrine Disorders: Yes Endocrine Disorders: Hypothyroidsim HEENT History of HEENT Disorders: No Cancer History of Cancer: No Psychosocial History of Psychiatric Problem: Yes Behavioral Health Disorders: Depression (with psychosis) Suicide Risk Score: 0 Integumentary History of Skin or Integumenta: No Family Medical History Significant Family History: No Pertinent Family Hx (unknown family history) Physical Exam-Suspected Sepsis Physical Exam Vital Signs Vital Sign - Last 12Hours 06/05/17 06:23 Temp 101.7 Pulse 123 Resp 23 B/P (MAP) 114/57 Pulse Ox 99 O2 Delivery Nasal Cannula O2 Flow Rate 5.00 Capillary Refill : Less Than 3 Seconds Blood Pressure Mean: 76 General Appearance: No Apparent Distress, WD/WN, Other (tremoring) HEENT: PERRL/EOMI (pupils constricted), Other (mouth appears dry, jaw is clenched tight) Neck: Other (neck is thick with redundant tissue) Respiratory: No Accessory Muscle Use, No Respiratory Distress, Decreased Breath Sounds, Wheezing (subtle) Cardiovascular: No Edema, No Murmur, Tachycardia Extremity: Normal Capillary Refill, Normal Inspection, No Pedal Edema Neurologic/Psychiatric: Other (minimally responsive to pain and voice. Will follow instructions to squeez hand) Skin: normal color, warm/dry, other (decubitus ulcer on the right buttock that is oozing some blood. A portion of the ulcer appears necrotic.) Focused Exam Evaluation Sepsis Stage: Sepsis Possible Source: Skin/Soft Tissue Lactate Level Time of Focused Exam: 07:45 Respiratory: Lungs Clear, Normal Breath Sounds, No Accessory Muscle Use, No Respiratory Distress Cardiovascular: No Edema, No Murmur, Tachycardia Capillary Refill: Less Than 3 Seconds Skin: normal color, warm/dry Lactic Acid Level Progress/Results/Core Measures Suspected Sepsis Recent Fever Within 48 Hours: Yes Infection Criteria Present: Suspected New Infection New/Unexplained Altered Menta: Yes Sepsis Screen: Possible Severe Sepsis Risk Sepsis Diagnosis: SIRS Temperature:101.7 Pulse: 123 Respiratory Rate: 23 Blood Pressure 114 /57 Mean: 76 Results/Orders Lab Results Micro Results My Orders Medications Given in ED Vital Signs/I&O Capillary Refill : Less Than 3 Seconds Blood Pressure Mean: 76 Progress Note #1: Time: 07:15 Progress Note Patient was seen and examined. Septic workup is in progress. His second liter of IV fluids has been ordered. DuoNeb treatment is being infused. ABG has been obtained. Scruggs catheter is being placed. Rectal Tylenol ordered for treatment of fever. Progress Note #2: Time: 07:54 Progress Note Workup revealed no source of infection. Patient was exposed and rolled. There was a necrotic appearing bleeding (oozing) decubitus ulcer on the right buttocks that is now the suspected source of infection. Culture was not obtained from this area as it was felt to be likely contaminated with stool. Rocephin has been ordered for initial antibiotic therapy. Focused exam for her perfusion and cardiopulmonary stability was performed at the same time. Patient will be admitted to ICU. A third liter of IV fluids is being administered. Progress Note #3: Time: 09:09 Progress Note Patient is still in the emergency room. He was reassessed and found to still be tachycardic with a heart rate in the 120s and 130s. He does appear to be perfusing well with capillary refill on the fingers and toes of less than 3 seconds. He has received 3 L of IV fluids and his blood pressure is stable. The Rocephin has been administered and vancomycin is starting. I did decide to culture the ulcer on the right buttock. The area was cleaned with wipes first to try to prevent contamination. However, there was stool in the region and contamination was probably inevitable. Mental status was mildly improved. Patient attempts to talk when addressed. Progress Note #4: Progress Note Nursing staff reported his blood pressure dropped upon arriving to the ICU after having normal blood pressure in the ED. I notified Dr. Weiss and the [facility] team. ECG Initial ECG Impression Date: Jun 05, 2017 Initial ECG Impression Time: 06:36 Initial ECG Rate: 124 Initial ECG Rhythm: S.Tach Comment Sinus tachycardia with no ST elevation or depression. Probable right axis deviation. No abnormal intervals. Diagnostic Imaging Diagonstic Imaging: Xray Plain Films/CT/US/NM/MRI: chest Comments Chest x-ray viewed by me and report reviewed. See report below: NAME: DULCE ZABALADOMINIK Cornejo MED REC#: [id number] PT STATUS: REG ER : 1950 PHYSICIAN: VALERIE GREEN MD ADMIT DATE: 06/05/17/ER Draft Date of Exam:06/05/17 CHEST 1 VIEW, AP/PA ONLY INDICATION: Febrile. Decreased level of consciousness. FINDINGS: Portable chest show the lungs to be clear. Heart is not enlarged. There is no pulmonary edema. No pneumothorax or pleural effusions. IMPRESSION: Normal portable chest. Dictated on workstation # [id number] Dict: 06/05/17 0749 Trans: 06/05/17 0757 [facility] [id number] Interpreted by: BEN SIU MD Departure Communication (Admissions) Time/Spoke to Admitting Phy: 07:59 Communication Case reviewed with Dr. Montero who will see this patient early this morning. We reviewed the case and findings thus far. Bridging orders will be placed for initial admission. Impression Impression: Primary Impression: Sepsis Qualified Codes: A41.9 - Sepsis, unspecified organism Additional Impressions: Altered mental status Qualified Codes: R41.82 - Altered mental status, unspecified Decubitus ulcer of right buttock Qualified Codes: L89.319 - Pressure ulcer of right buttock, unspecified stage Renal insufficiency Disposition: ADMITTED INPATIENT Condition: Improved Admissions Decision to Admit Reason: Admit from ER (General) Decision to Admit/Date: Jun 05, 2017 Time/Decision to Admit Time: 06:30 Departure-Patient Inst. Referrals: NO,LOCAL PHYSICIAN (PCP/Family) Primary Care Physician VALERIE GREEN MD Jun 05, 2017 7:05 am
[2017-06-05 07:07] LABS: ABG BASE EXCESS -1.1 MMOL/L (-2.5-2.5); ABG HCO3 23 MMOL/L (23-27); ABG OXYGEN SATURATION 98 % (94-100); ABG PCO2 38 MMHG (35-45); ABG PO2 98 MMHG (79-93); ABG TCO2 23.8 MMOL/L (21.0-31.0); ALLENS TEST YES-POS; PATIENT TEMP 101.7
[2017-06-05 07:13] LABS: ALBUMIN 3.5 GM/DL (3.2-4.5); BILIRUBIN,TOTAL 0.8 MG/DL (0.1-1.0); CALCIUM 8.9 MG/DL (8.5-10.1); CREATININE SERUM 1.41 MG/DL (0.60-1.30); POTASSIUM 4.3 MMOL/L (3.6-5.0); TOTAL PROTEIN 6.2 GM/DL (6.4-8.2)
[2017-06-05 07:21] LABS: BILIRUBIN,URINE NEGATIVE (NEGATIVE); KETONES,URINE 1+ (NEGATIVE); LEUKOCYTE ESTERASE ,URINE 1+ (NEGATIVE); NITRITE,URINE NEGATIVE (NEGATIVE); PH,URINE 7 (5-9); PROTEIN,URINE 2+ (NEGATIVE); UROBILINOGEN,URINE 4 MG/DL (NORMAL)
[2017-06-05 07:24] LABS: HYALINE CASTS, URINE 0-2 /LPF; SQUAMOUS EPITHELIAL CELL,UR 0-2 /HPF
[2017-06-05 07:34] LABS: THYROID STIMULATING HORMONE 3.75 UIU/ML (0.35-4.94); VALPROIC ACID 93.2 UG/ML (50.0-100.0)
[2017-06-05] MEDS ORDERED: cefTRIAXone INJECTION 1,000 MG in NS (IVPB) 50 ML IV ONE (07:45)
--- NOTE | 2017-06-05 07:57 | Diagnostic Imaging Report ---
INDICATION: Febrile. Decreased level of consciousness. FINDINGS: Portable chest show the lungs to be clear. Heart is not enlarged. There is no pulmonary edema. No pneumothorax or pleural effusions. IMPRESSION: Normal portable chest. Dictated by: Dictated on workstation # [id number]
[2017-06-05] MEDS ORDERED: VANCOMYCIN INJECTION 1,000 MG in NS (IVPB) 250 ML IV ONE (09:00)
[2017-06-05 09:44] VITALS: BP 74/48
[2017-06-05 10:00] VITALS: BP 77/46
[2017-06-05] MEDS ORDERED: CATHETER FLUSH 10 ML SYR IV PRN (10:00)
[2017-06-05] MEDS ORDERED: ONDANSETRON 4 MG/2 ML (SDV) Z0FRAN IV PRN (10:00)
[2017-06-05] MEDS ORDERED: VANCOMYCIN 1500 MG/NS 500 ML IVPB IV NR ×2 (10:00)
[2017-06-05] MEDS ORDERED: ACETAMINOPHEN 650 MG SUPP (TYLENOL) PR PRN (10:00)
[2017-06-05] MEDS ORDERED: NS IV 1000 ML 1,000 ML IV SCH ×2 (10:00→10:15)
[2017-06-05] MEDS ORDERED: NOREPINEPHRINE 4 MG/4 ML (LEVOPHED) AMP IV ONE (10:09)
[2017-06-05] MEDS ORDERED: D5W IV SOLUTION (EXCEL) 250 ML IV ONE (10:10)
[2017-06-05] MEDS ORDERED: NOREPINEPHRINE 4 MG in D5W IV SOLUTION (EXCEL) 250 ML IV SCH (10:15)
[2017-06-05] MEDS ORDERED: NS IV 1000 ML 1,000 ML IV PRN (10:15)
[2017-06-05] MEDS ORDERED: PHARMACY TO DOSE IV SCH (10:15)
[2017-06-05 11:00] VITALS: BP 176/86
[2017-06-05] MEDS ORDERED: inSUlin ASPART (NovoLOG) 1 UNIT/0.01 ML (CHARGE PER UNIT) SC SCH (11:00)
--- NOTE | 2017-06-05 11:23 | Consultation ---
History of Present Illness History of Present Illness Patient Consulted On(bre/time) 06/05/17 11:18 Time Seen by Provider: 10:33 History of Present Illness Surgery asked to consult regarding sepsis, hypotension and right gluteal decub. HPI per ER: This 66-year-old resident of [facility] in [place] presents via EMS with altered mental status and fever. History is obtained from both EMS and shelter staff. Patient was last seen well as 02:30 but was noted to be a little shaky at that time. EMS was then activated and 05:30 after patient was found to be febrile and with severely decreased level of consciousness. Patient was only responsive to painful stimuli for EMS. He was noted to have a tremor. Pupils were constricted and Narcan 2 mg was administered by EMS. There was minimal response. Staff reports that he is normally alert and oriented 4. He has a rather flat affect and is very hard of hearing. He has problems with depression and psychosis. He has lower extremity weakness and deficits resulting in a minimally ambulatory state. He is wheelchair dependent for his safety. Patient also has COPD. Temperature at the shelter was 102. He is tachycardic with a heart rate in the 120s. EMS administered a liter of IV fluids. Patient is new to this facility and we have no prior admission records. Pt was non-verbal when I saw him in ICU, unable to answer any questions. When he had got up to the ICU his SBP dropped into the 60's and they started levophed through peripheral IV, needed Central line to continue Levophed. Allergies and Home Medications Allergies Coded Allergies: aspirin (Verified Allergy, Unknown, 06/05/17) Past Ymuwslr-Nibhan-Ydedjv Hx Patient Social History Alcohol Use: Denies Use Recreational Drug Use: No Smoking Status: Unknown if Ever Smoked Recent Foreign Travel: No Contact w/Someone Who Travel: No Recent Infectious Disease Expo: No Surgeries History of Surgeries: No (unknown) Respiratory History of Respiratory Disorde: Yes Respiratory Disorders: COPD Cardiovascular History of Cardiac Disorders: No Neurological History of Neurological Disord: Yes Neurological Disorders: Parkinson's Disease (secondary to medication effect) Genitourinary History of Genitourinary Disor: Yes Genitourinary Disorders: Prostate Problems Gastrointestinal History of Gastrointestinal Di: Yes Gastrointestinal Disorders: Chronic Constipation Musculoskeletal History of Musculoskeletal Dis: Yes (lower extremity weakness/discoordination, wheelchair dependent) Endocrine History of Endocrine Disorders: Yes Endocrine Disorders: Hypothyroidsim HEENT History of HEENT Disorders: No Cancer History of Cancer: No Psychosocial History of Psychiatric Problem: Yes Behavioral Health Disorders: Depression (with psychosis) Integumentary History of Skin or Integumenta: No Family Medical History Significant Family History: Other Conditions/Hx (unknown family history, pt cannot answer questions) Review of Systems-General ROS-Unable to Obtain: pt non-verbal, only per EMS and whatever he did answer in ER. Physical Exam-General Problems Physical Exam Vital Signs Vital Sign - Last 12Hours 06/05/17 06:23 Temp 101.7 Pulse 123 Resp 23 B/P (MAP) 114/57 Pulse Ox 99 O2 Delivery Nasal Cannula O2 Flow Rate 5.00 Capillary Refill : Less Than 3 Seconds General Appearance: severe distress, obese Eyes: Bilateral Eye PERRL, Bilateral Eye EOMI HEENT: pharynx normal, No scleral icterus (R), No scleral icterus (L), other ( pt has very short and thick nec) Neck: limited range of motion, No thyromegaly Respiratory: lungs clear, normal breath sounds, respiratory distress, accessory muscle use, other (pt may have sleep apnea, he had long episodes of not breathing) Cardiovascular: JVD, tachycardia Gastrointestinal: soft, no organomegaly, distended Back: normal inspection, no CVA tenderness, no vertebral tenderness Extremities: no calf tenderness, normal capillary refill, pedal edema (minimal) Neurologic/Psychiatric: other (unable to assess) Skin: other (pt has appx [id number] area of erythema right gluteal area, in the center is purple hematoma, doesn't quite look like necrotic tissue, it is firm under this area. Not really sure I feel fluctuance, it is tender to palpation) Lymphatic: no adenopathy (neck, axilla or groin) Data Review Labs Laboratory Tests 06/05/17 06:07: C-Reactive Protein High Sensitivity 3.92H 06/05/17 06:37: White Blood Count 13.9H, Red Blood Count 5.11, Hemoglobin 15.2, Hematocrit 45, Mean Corpuscular Volume 87, Mean Corpuscular Hemoglobin 30, Mean Corpuscular Hemoglobin Concent 34, Red Cell Distribution Width 14.0, Platelet Count 88L, Mean Platelet Volume 8.9, Neutrophils (%) (Auto) 78H, Lymphocytes (%) (Auto) 8L , Monocytes (%) (Auto) 14H, Eosinophils (%) (Auto) 0, Basophils (%) (Auto) 0, Neutrophils # (Auto) 10.8H, Lymphocytes # (Auto) 1.1, Monocytes # (Auto) 1.9H, Eosinophils # (Auto) 0.0, Basophils # (Auto) 0.0, Prothrombin Time 13.4, INR Comment 1.0, Activated Partial Thromboplast Time 26, Sodium Level 134L, Potassium Level 4.3, Chloride Level 100, Carbon Dioxide Level 22, Anion Gap 12, Blood Urea Nitrogen 11, Creatinine 1.41H, Estimat Glomerular Filtration Rate 50 , BUN/Creatinine Ratio 8, Glucose Level 139H, Lactic Acid Level 3.41*H, Calcium Level 8.9, Total Bilirubin 0.8, Aspartate Amino Transf (AST/SGOT) 20, Alanine Aminotransferase (ALT/SGPT) 20, Alkaline Phosphatase 58, Total Protein 6.2L, Albumin 3.5, Thyroid Stimulating Hormone (TSH) 3.75, Free Thyroxine 1.03, Valproic Acid (Depakene) Level 93.2 06/05/17 06:52: Blood Gas Puncture Site RIGHT RADIAL, Blood Gas Patient Temperature 101.7, Arterial Blood pH 7.40, Arterial Blood Partial Pressure CO2 38, Arterial Blood Partial Pressure O2 98H, Arterial Blood HCO3 23, Arterial Blood Total CO2 23.8, Arterial Blood Oxygen Saturation 98, Arterial Blood Base Excess -1.1, Mc Test YES-POS, Blood Gas Ventilator Setting NO, Blood Gas Inspired Oxygen 7L 06/05/17 07:05: Urine Color YELLOW, Urine Clarity CLEAR, Urine pH 7, Urine Specific [place] 1.010L, Urine Protein 2+H, Urine Glucose (UA) 3+H, Urine Ketones 1+H, Urine Nitrite NEGATIVE, Urine Bilirubin NEGATIVE, Urine Urobilinogen 4H, Urine Leukocyte Esterase 1+H, Urine RBC (Auto) 1+H, Urine RBC 2-5H, Urine WBC 2-5, Urine Squamous Epithelial Cells 0-2, Urine Crystals NONE, Urine Bacteria TRACE, Urine Casts PRESENT, Urine Hyaline Casts 0-2H, Urine Mucus NEGATIVE, Urine Culture Indicated YES 06/05/17 08:22: Lactic Acid Level 2.48*H Microbiology 06/05/17 Influenza Types A,B Antigen (KELLY) - Final, Complete Assessment/Plan Assessment/Plan Assessment/Plan 1. Sepsis - unknown source, could be Cellulitis/abscess right gluteal cheek ( which may be early decub), could be UTI 2. Hypotensive - needs levophed to keep SBP up 3. Venous insufficiency 4. Right gluteal cellulitis/abscess, possible early decub 5. COPD 6. Hx of Hypothyroidism, Parkinsons and Depression Pt needed an emergent Central line and it was placed. He will need maximal medical management; with IV fluids, IV ABX and will await urine culture. Pt is a DNR and at this time would wait to do any surgical debridement of the right gluteal area. If it is an abscess it may resolve with ABX, if it is a decub it will present itself more over the next day or so. Pt has only a minimally elevated WBC (13.9) and he is a very poor surgical candidate at this time. He has already received 3 liters of crystalloids. Will monitor, talk with family and make a determination if surgery is the right course for this pt. BEN CASTILLO DO Jun 05, 2017 11:23
--- NOTE | 2017-06-05 11:32 | History & Physicial ([facility]) ---
HPI History of Present Illness: Patient was brought to ED via EMS after being found febrile with altered mental status around 0515 this morning; prior to that, the patient was seen around 0230 and was well. Per report from ED, patient has ulceration on right buttock that appears necrotic and infected; per retirement report the patient had a reddened area but no open areas 2 days ago. Pt was given tylenol in ED for fever. Due to altered mental status, tachycardia, and severe sepsis, patient has been admitted to ICU. In the ED patient had HR of 120's that was sinus tachycardia and his lowest systolic BP was 118; however upon arrival to the ICU the patient was noted to have systolic blood pressures in the 70's. Source: retirement records Exam Limitations: clinical condition Date seen by provider: Jun 05, 2017 Time Seen by Provider: 09:00 Attending Physician Jada Garcia David F MD Consult Date of Admission Jun 05, 2017 at 08:05 Home Medications Home Medications Reviewed patient Home Medication Reconciliation Form Allergies Coded Allergies: aspirin (Verified Allergy, Unknown, 06/05/17) [id number] Hx Patient Social History Marrital Status: Number of Children: 2 Number of living children: 2 [facility] [place] Employed/Student: retired Alcohol Use: Denies Use Recreational Drug Use: No Smoking Status: Unknown if Ever Smoked Recent Foreign Travel: No Contact w/other who traveled: No Recent Infectious Disease Expo: No Immunizations Up To Date Tetanus Booster (TDap): Unknown Past Medical History Major Depressive Disorder Bipolar Disoder Schizoaffective Disorder Hypothyroidism Type 2 Diabetes Mellitus Parkinson's - Medication Induced Hx of alcohol abuse COPD Folate Deficiency Urinary Incontinence Medication Related Parkinsons Family Medical History Significant Family History: No Pertinent Family Hx (unknown family history) Review of Systems ([facility]) Constitutional: see HPI EENTM: No hoarseness, No epistaxis Respiratory: cough, wheezing Cardiovascular: other (unable to obtain due to mental status) Gastrointestinal: other (unable to obtain due to mental status) Genitourinary: incontinence Musculoskeletal: other (unable to obtain due to mental status) Skin: see HPI Psychiatric/Neurological: Other (Altered mental status, depression, bipolar disorder, schizoaffective disorder) Reviewed Test Results Reviewed Test Results Lab Laboratory Tests Test 06/05/17 06:07 06/05/17 06:37 06/05/17 06:52 06/05/17 07:05 Range/Units C-Reactive Protein High Sensitivity 3.92 H 0.00-0.50 MG/DL White Blood Count 13.9 H 4.3-11.0 10^3/uL Red Blood Count 5.11 4.35-5.85 10^6/uL Hemoglobin 15.2 13.3-17.7 G/DL Hematocrit 45 40-54 % Mean Corpuscular Volume 87 80-99 FL Mean Corpuscular Hemoglobin 30 25-34 PG Mean Corpuscular Hemoglobin Concent 34 32-36 G/DL Red Cell Distribution Width 14.0 10.0-14.5 % Platelet Count 88 L 130-400 10^3/uL Mean Platelet Volume 8.9 7.4-10.4 FL Neutrophils (%) (Auto) 78 H 42-75 % Lymphocytes (%) (Auto) 8 L 12-44 % Monocytes (%) (Auto) 14 H 0-12 % Eosinophils (%) (Auto) 0 0-10 % Basophils (%) (Auto) 0 0-10 % Neutrophils # (Auto) 10.8 H 1.8-7.8 X 10^3 Lymphocytes # (Auto) 1.1 1.0-4.0 X 10^3 Monocytes # (Auto) 1.9 H 0.0-1.0 X 10^3 Eosinophils # (Auto) 0.0 0.0-0.3 10^3/uL Basophils # (Auto) 0.0 0.0-0.1 10^3/uL Prothrombin Time 13.4 12.2-14.7 SEC INR Comment 1.0 0.8-1.4 Activated Partial Thromboplast Time 26 24-35 SEC Sodium Level 134 L 135-145 MMOL/L Potassium Level 4.3 3.6-5.0 MMOL/L Chloride Level 100 98-107 MMOL/L Carbon Dioxide Level 22 21-32 MMOL/L Anion Gap 12 5-14 MMOL/L Blood Urea Nitrogen 11 7-18 MG/DL Creatinine 1.41 H 0.60-1.30 MG/DL Estimat Glomerular Filtration Rate 50 BUN/Creatinine Ratio 8 Glucose Level 139 H 70-105 MG/DL Lactic Acid Level 3.41 *H 0.50-2.00 MMOL/L Calcium Level 8.9 8.5-10.1 MG/DL Total Bilirubin 0.8 0.1-1.0 MG/DL Aspartate Amino Transf (AST/SGOT) 20 5-34 U/L Alanine Aminotransferase (ALT/SGPT) 20 0-55 U/L Alkaline Phosphatase 58 40-136 U/L Total Protein 6.2 L 6.4-8.2 GM/DL Albumin 3.5 3.2-4.5 GM/DL Thyroid Stimulating Hormone (TSH) 3.75 0.35-4.94 UIU/ML Free Thyroxine 1.03 0.70-1.48 NG/DL Valproic Acid (Depakene) Level 93.2 50.0-100.0 UG/ML Blood Gas Puncture Site RIGHT RADIAL Blood Gas Patient Temperature 101.7 Arterial Blood pH 7.40 7.37-7.43 Arterial Blood Partial Pressure CO2 38 35-45 MMHG Arterial Blood Partial Pressure O2 98 H 79-93 MMHG Arterial Blood HCO3 23 23-27 MMOL/L Arterial Blood Total CO2 23.8 21.0-31.0 MMOL/L Arterial Blood Oxygen Saturation 98 94-100 % Arterial Blood Base Excess -1.1 -2.5-2.5 MMOL/L Mc Test YES-POS Blood Gas Ventilator Setting NO Blood Gas Inspired Oxygen 7L Urine Color YELLOW Urine Clarity CLEAR Urine pH 7 5-9 Urine Specific [place] 1.010 L 1.016-1.022 Urine Protein 2+ H NEGATIVE Urine Glucose (UA) 3+ H NEGATIVE Urine Ketones 1+ H NEGATIVE Urine Nitrite NEGATIVE NEGATIVE Urine Bilirubin NEGATIVE NEGATIVE Urine Urobilinogen 4 H NORMAL MG/DL Urine Leukocyte Esterase 1+ H NEGATIVE Urine RBC (Auto) 1+ H NEGATIVE Urine RBC 2-5 H /HPF Urine WBC 2-5 /HPF Urine Squamous Epithelial Cells 0-2 /HPF Urine Crystals NONE /LPF Urine Bacteria TRACE /HPF Urine Casts PRESENT /LPF Urine Hyaline Casts 0-2 H /LPF Urine Mucus NEGATIVE /LPF Urine Culture Indicated YES Test 06/05/17 08:22 06/05/17 11:52 06/05/17 11:55 Range/Units Lactic Acid Level 2.48 *H 3.04 *H 0.50-2.00 MMOL/L Glucometer 133 H 70-110 MG/DL Radiology Portable CXR in ED showed no acute process per radiology preliminary read Physical Exam-([facility]) Physical Exam Vital Signs VS - Last 72 Hours, by Label 06/05/17 06/05/17 06/05/17 06/05/17 06:23 07:04 09:16 09:30 Temp 101.7 99.4 Pulse 123 136 Resp 23 24 B/P (MAP) 114/57 Pulse Ox 99 100 98 96 O2 Delivery Nasal Cannula Nasal Cannula OxyMask O2 Flow Rate 5.00 7.00 40.00 06/05/17 06/05/17 06/05/17 06/05/17 09:44 09:45 10:00 11:00 Temp 99.6 Pulse 124 126 122 98 Resp 13 21 B/P (MAP) 74/48 77/46 176/86 Pulse Ox 95 95 98 O2 Delivery Nasal Cannula Nasal Cannula Nasal Cannula O2 Flow Rate 4.00 4.00 4.00 06/05/17 06/05/17 06/05/17 12:00 12:00 12:15 Pulse 147 150 Resp 24 24 B/P (MAP) 122/68 Pulse Ox 95 95 96 O2 Delivery OxyMask OxyMask O2 Flow Rate 4.07 6.00 40.00 Capillary Refill : Less Than 3 Seconds General Appearance: moderate distress, obese HEENT: No scleral icterus (R), No scleral icterus (L), No pharyngeal erythema Neck: non-tender, supple, normal inspection Respiratory: no accessory muscle use, respiratory distress (breathing appears mildly labored, O2 sats 94% on NC), wheezing (diffuse) Cardiovascular: regular rate, rhythm (sinus tachycardia per telemetry), tachycardia, other (2+ generalized edema) Gastrointestinal: non tender, soft, no organomegaly, no pulsatile mass, abnormal bowel sounds (hypoactive), No guarding, No rebound, No tenderness Back: normal inspection, no CVA tenderness, no vertebral tenderness Extremities: swelling Neurologic/Psychiatric: disoriented x 3, other (pt able to answer a few questions, but easily drifts off to sleep) Skin: other (buttock with what appears to be abscess ~6 inches in diameter with open and necrotic appearing center measuring 10 cm x 20 cm) Assessment/Plan Assessment/Plan Admission Dx Severe Sepsis COPD Altered Mental Status Abscess Type II Diabetes Plan Upon exam the patient appears critically ill. Given size and location of abscess, as well as suspected need for central line placement due to persistent hypotension, will consult general surgery to evaluate. Given that patient appears critically ill, will also consult Dr. Weiss for assistance with critical care management. Blood pressure rechecked while examining patient and SBP 92; will continue to monitor closely. 4th liter NS initiated and infusing at bolus rate; will initiate severe sepsis protocol including initiation of levophed for blood pressure support if needed. Will contact retirement and review records to see if there is previous documentation of pressure ulcer. Consults: Dr. Barraza, General Surgery and Dr. Weiss, Critical Care The patient is critically ill and requires an ICU level of care, with an expected length of stay of at least 5 days due to the severity of his illness as well as his multiple comorbid conditions. Condition: Critical Prognosis: Poor Code Status: DNR Diagnosis/Problems: JADA GARCIA DO Jun 05, 2017 11:32
--- NOTE | 2017-06-05 11:36 | Progress Note-Post Operative ---
Post-Operative Progess Note Surgeon (s)/Political Science Professor (s) Surgeon BEN CASTILLO DO Political Science Professor: none Pre-Operative Diagnosis Sepsis, Hypotension, Post-Operative Diagnosis Same plus Cellulitis/abscess vs Decub ulcer right gluteal cheek and R/O UTI Procedure & Operative Findings Date of Procedure 06/05/17 Procedure Performed/Findings Insertion of Right IJ central line with US guidance Anesthesia Type local lidocaine Estimated Blood Loss Estimated blood loss (mL): scant Specimens/Packing Specimens Removed none BEN CASTILLO DO Jun 05, 2017 11:36
--- NOTE | 2017-06-05 11:39 | Pulmonary Consultation ---
History of Present Illness History of Present Illness Date of Consultation 06/05/17 11:34 Time Seen by Provider: 11:34 Date of Admission History of Present Illness 66yo presented to ED via EMS and was found to be febrile and altered MS around 0515. In the ED pt was admitted to ICU after being found to have a altered MS, tachycardia and signs of severe sepsis. SBP in the ED was 118 and upon ICU admission decreased into the 70's. ED doctor did find pt to have a large necrotic right buttocks. PT is currently on Levophed secondary to SBP in the 60' s. I am consulted for ICU management. Dr. Barraza just placed central line. Allergies and Home Medications Allergies Coded Allergies: aspirin (Verified Allergy, Unknown, 06/05/17) Past Pkfmgvo-Xzqbfn-Suvhkg Hx Patient Social History Alcohol Use: Denies Use Recreational Drug Use: No Smoking Status: Unknown if Ever Smoked Recent Foreign Travel: No Contact w/Someone Who Travel: No Recent Infectious Disease Expo: No Physical Abuse: No Sexual Abuse: No Surgeries History of Surgeries: No (unknown) Respiratory History of Respiratory Disorde: Yes Respiratory Disorders: COPD Cardiovascular History of Cardiac Disorders: No Neurological History of Neurological Disord: Yes Neurological Disorders: Parkinson's Disease (secondary to medication effect) Genitourinary History of Genitourinary Disor: Yes Genitourinary Disorders: Prostate Problems Gastrointestinal History of Gastrointestinal Di: Yes Gastrointestinal Disorders: Chronic Constipation Musculoskeletal History of Musculoskeletal Dis: Yes (lower extremity weakness/discoordination, wheelchair dependent) Endocrine History of Endocrine Disorders: Yes Endocrine Disorders: Hypothyroidsim HEENT History of HEENT Disorders: No Cancer History of Cancer: No Psychosocial History of Psychiatric Problem: Yes Behavioral Health Disorders: Depression (with psychosis) Suicide Risk Score: 0 Integumentary History of Skin or Integumenta: No Family Medical History Significant Family History: Other Conditions/Hx (unknown family history, pt cannot answer questions) Exam Exam Vital Signs Date Time Temp Pulse Resp B/P (MAP) Pulse Ox O2 Delivery O2 Flow Rate FiO2 06/05/17 09:45 126 06/05/17 09:16 99.4 136 24 98 06/05/17 07:04 100 Nasal Cannula 7.00 06/05/17 06:23 101.7 123 23 114/57 99 Nasal Cannula 5.00 I & O 06/06/17 07:00 Intake Total 2050 ml Balance 2050 ml General Appearance: No Apparent Distress, WD/WN, Other (tremoring) HEENT: PERRL/EOMI (pupils constricted), Other (mouth appears dry, jaw is clenched tight) Neck: Other (neck is thick with redundant tissue) Respiratory: Accessory Muscle Use, Decreased Breath Sounds, Respiratory Distress Cardiovascular: No Edema, No Murmur, Tachycardia Capillary Refill: Less Than 3 Seconds Gastrointestinal: soft, no organomegaly, distended Extremity: Normal Capillary Refill, Normal Inspection, No Pedal Edema Neurologic/Psychiatric: Alert, Other (minimally responsive to pain and voice) Lymphatic: No Adenopathy Results Lab Laboratory Tests 06/05/17 06:37 Assessment/Plan Assessment/Plan Severe sepsis with UTI and large decubitus ulcer - Continue Vanco. Rocephin -- change to Zosyn -Mei cultures -Wound Care Acute respiratory distress - pt is a DNR -BIPAP 15/8 -SVNs Q 4 -Solumedrol 40 Q6 120mg x 1 Metabolic lactic acidosis -IVF COPDAE -Currently on BiPAP -Pt is a DNR DMII Hypothyroid Major Depressive Disorder Bipolar Disoder Schizoaffective Disorder I discussed with his brother who states he believes patient is a full DNR. Admission papers from [facility] state that patient is a DNR. I explained to brother patient is very critical and may not make it through this. He understands. 255 ELLYN WRIGHT DO Jun 05, 2017 11:39
[2017-06-05 12:00] VITALS: BP 122/68
[2017-06-05] MEDS ORDERED: PIPERACILLIN SODIUM/TAZOBACTAM 4.5 GM in NS (IVPB) 100 ML IV NR (12:00)
[2017-06-05] MEDS ORDERED: ENOXAPARIN 40 MG/0.4 ML (LOVENOX) SYR SC SCH (12:00)
[2017-06-05 12:15] VITALS: BP 128/63
[2017-06-05] MEDS ORDERED: methylPREDNISolone 125 MG (Solu-MEDROL) VIAL IM ONE (12:15)
[2017-06-05] MEDS ORDERED: RT-ALBUTEROL/IPRATROPIUM 3 ML (DUONEB) VIAL INH PRN (12:30)
--- NOTE | 2017-06-05 12:41 | Pulmonary Progress Note ---
Standard Progress Note Progress Notes Time Seen by Provider: 12:37 Assessment & Plan Severe sepsis with UTI and large decubitus ulcer Acute respiratory distress - pt is a DNR Metabolic lactic acidosis COPDAE DMII Hypothyroid Major Depressive Disorder Bipolar Disoder Schizoaffective Disorder Called to bedside secondary to patient rapidly declining. As I walk into the room patient is cyanotic and not spontaneously breathing. RT just placed patient on BiPAP and was giving a breathing treatment when it appeared that he was seizing and he became hypoxic. RT did assist his respirations with bag mask without success. I called brother to let him know about patient's passing. 30min spent with patient and discussing with family and medical staff. 255 ELLYN WRIGHT DO Jun 05, 2017 12:41
[2017-06-05] MEDS ORDERED: RT-ALBUTEROL/IPRATROPIUM 3 ML (DUONEB) VIAL INH SCH (14:00)
[2017-06-05] MEDS ORDERED: PIPERACILLIN SODIUM/TAZOBACTAM 4.5 GM in NS (IVPB) 100 ML IV SCH (18:00)
[2017-06-05] MEDS ORDERED: methylPREDNISolone 40 MG/ML (Solu-MEDROL) VIAL IV SCH (18:00)
[2017-06-05] MEDS ORDERED: VANCOMYCIN 1500 MG/NS 500 ML IVPB IV SCH ×2 (22:00)
--- NOTE | 2017-06-05 23:11 | OPERATIVE REPORT ---
DATE OF SERVICE: 06/05/2017 PREOPERATIVE DIAGNOSES: 1. Sepsis. 2. Hypertension. 3. Venous insufficiency. 4. Right gluteal abscess cellulitis versus decubitus. POSTOPERATIVE DIAGNOSES: 1. Sepsis. 2. Hypertension. 3. Venous insufficiency. 4. Right gluteal abscess cellulitis versus decubitus. PROCEDURE: Insertion of right IJ central line with ultrasound guidance. SURGEON: Dr. Barraza. FORMULA CLERK: None. ANESTHESIA: Local lidocaine. BLOOD LOSS: Scant. FLUIDS: None. SPECIMENS: None. INDICATION FOR PROCEDURE: The patient is a 66-year-old male who was transferred from [facility] to the ER for decreased mental status changes, found to be possibly septic, transferred to the ICU with a subsequent drop in his systolic blood pressure in the 60s and need for IV Levophed through central line. FINDINGS: The patient had a right IJ placed with ultrasound guidance without difficulty. PROCEDURE NOTE: Unfortunately, we gave informed consent because this was an emergent central line and patient was nonverbal, unable to get a hold of his family. Elected to proceed with a central line right IJ, so we can give Levophed to keep his pressure up. The patient was sterilely prepped and draped in his bed. Local lidocaine was used to infiltrate the right side of the neck and then using ultrasound could visualize the right IJ, advanced the needle with negative inspiration and watched to enter the right IJ. Good flash of blood then removed syringe and then through the needle, placed a guidewire using a Seldinger technique, it went in easily and could see the guidewire in the right IJ with the ultrasound. Removed the needle, made a stab incision along the guidewire and then over the guidewire placed the dilator using a Seldinger technique then removed this and then over the guidewire placed the triple lumen central line again over the guidewire using Seldinger technique went in easily and then removed the guidewire placed a cap on the middle line of the central line and then easily aspirated and got a good flash of blood and then flushed this with saline in all 3 ports, then sutured the central line in place with a 2-0 silk suture to hold in place and then carefully cleaned and dried the area and removed the drapes and then the nurse sterilely placed dressing on the patient. He tolerated this well. Although, he did have episodes of not breathing during the procedure where you just take a breath and hold it. Sponge, needle count correct at the end of the case. Job ID: [id number] DocumentID: [id number] Dictated Date: 06/05/2017 11:39:40 [employer] Horse Hitch Driver Date: 06/05/2017 22:32:02 Dictated By: BEN BARRAZA DO
[2017-06-06] MEDS ORDERED: cefTRIAXone 1 GM/NS 50 ML IVPB IV SCH ×2 (09:00)
[2017-06-06] MEDS ORDERED: TROUGH ORDER-PHARMACY XX NR (09:00)
--- NOTE | 2017-06-06 11:56 | Discharge Summary ---
Diagnosis/Chief Complaint Date of Admission Jun 05, 2017 at 08:05 Date of Discharge Jun 05, 2017 at 14:36 Admission Diagnosis Admission Diagnosis Severe Sepsis COPD Altered Mental Status Abscess Type II Diabetes Discharge Diagnosis Severe Sepsis COPD Altered Mental Status Abscess Type II Diabetes Chief Complaint/HPI Chief Complaint/HPI Patient was brought to ED via EMS after being found febrile with altered mental status around 0515 this morning; prior to that, the patient was seen around 0230 and was well. Per report from ED, patient has ulceration on right buttock that appears necrotic and infected; per [facility] report the patient had a reddened area but no open areas 2 days ago. Pt was given tylenol in ED for fever. Due to altered mental status, tachycardia, and severe sepsis, patient has been admitted to ICU. In the ED patient had HR of 120's that was sinus tachycardia and his lowest systolic BP was 118; however upon arrival to the ICU the patient was noted to have systolic blood pressures in the 70's. Discharge Summary-Simple/Stand Consultations Discharge Physical Examination Allergies: Coded Allergies: aspirin (Verified Allergy, Unknown, 06/05/17) Vitals & I&Os Vital Sign - Last 12Hours Date Time Temp Pulse Resp B/P (MAP) Pulse Ox O2 Delivery O2 Flow Rate FiO2 06/05/17 12:15 150 24 96 40.00 06/05/17 12:00 122/68 OxyMask 06/05/17 09:44 99.6 Hospital Course See final discharge diagnosis. Radiology Reviewed Portable CXR in ED showed no acute process per radiology preliminary read Discharge Instructions to patient/family Please see electronic discharge instructions given to patient. Discharge Medications Reviewed and agree with Discharge Medication list on patient's Discharge Instruction sheet Clinical Quality Measures DVT/VTE Risk/Contraindication: Risk Factor Score Per Nursin RFS Level Per Nursing on Admit: 4+=Very High Comfort Measures/ Cardiopulmonary Arrest: Cardiorespiratory Arrest Date of : Jun 05, 2017 Time of : 12:32 LIZZY GARCIA DO Jun 06, 2017 11:56
--- NOTE | 2017-06-06 15:13 | Physician Query Clarification ---
PQ-Conflicting Diagnosis Admission/Discharge Admission Date: Jun 05, 2017 at 08:05 Discharge Date: Jun 05, 2017 at 14:36 The medical record reflects the following clinical scenario: History/Risk Factors: Sepsis, abscess rt buttock, Pressure ulcer rt buttock, diabetes Clinical Findings: T 101.7, AMS, urine culture-2+protein, urine RBC 2-5, urine bacteria trace, urine casts present, urine cult preliminary - no growth Treatment: IV Rocephin, IV Vancomycin Question: Do you agree with the impression of the UTI per Dr. Weiss. Please document a response below. I agree that the patient had the potential to have UTI as a source for his sepsis, and that likely he had multiple factors involved in the cause of his sepsis. PHYSICIAN RESPONSE Do you agree w/Consulting Dx?: Yes In responding to this query, please exercise your independent professional judgment. The purpose of this communication is to more accurately reflect the complexity of your patients condition. The fact that a question is asked does not imply that any particular answer is desired or expected. Thank you for your timely response to this clarification. Requestors name: Eric THIS PHYSICIAN QUERY FORM IS A PERMANENT PART OF THE MEDICAL RECORD ERIC MURPHY Jun 06, 2017 15:13 LIZZY GARCIA DO Jun 07, 2017 08:42
== END 2017-06-05 14:36 | disposition expired | DRG 872 ==
LOC: ER 06:27 → ICU 08:05
PROVIDERS: ADMIT Family Medicine; ATTEND Family Medicine
PROC: 05HM33Z Insertion of Infusion Device into Right Internal Jugular Vein, Percutaneous Approach (ICD-10-PCS; principal; 2017-06-05)
DX: A41.9 Sepsis, unspecified organism (principal); L02.31 Cutaneous abscess of buttock; N39.0 Urinary tract infection, site not specified; J44.1 Chronic obstructive pulmonary disease with (acute) exacerbation; E11.9 Type 2 diabetes mellitus without complications; L89.319 Pressure ulcer of right buttock, unspecified stage; R06.00 Dyspnea, unspecified; I87.2 Venous insufficiency (chronic) (peripheral); R06.89 Other abnormalities of breathing; Z66 Do not resuscitate; N28.9 Disorder of kidney and ureter, unspecified; G20 Parkinson's disease; E03.9 Hypothyroidism, unspecified; F31.9 Bipolar disorder, unspecified; F32.9 Major depressive disorder, single episode, unspecified; Z99.3 Dependence on wheelchair
CPT/HCPCS: 36415; 51702; 71010; 80053; 80164; 81000; 82805; 82962; 83605; 84439; 84443; 85025; 85610; 85730; 86141; 87040; 87070; 87077; 87081; 87088; 87186; 87205; 87804; 93005; 94640; 94660; 96361; 96374